=== PATIENT | female | born 1970 | race Caucasian/White ===

== ENCOUNTER → 2017-03-16 07:36 | Outpatient (CLI) | payer OTHER, SELFPAY ==
[2017-03-16 08:04] LABS: Basophil% 0.3 % (0-1); Eosinophils% 3.1 % (0-5); Hematocrit 37.6 % (37-47); Hemoglobin 11.9 g/dl (12.0-15.0); Lymphocyte % 28.1 % (19-41); Mean Corp Hgb Conc 31.6 g/gl (32-36); Mean Corpuscular Hgb 29.5 pg (27.0-32.0); Mean Corpuscular Volume 93.1 fL (81-99); Mean Platelet Vol. 9.3 fl (6.2-12.0); Monocyte% 8.6 % (0-10); Neutrophil % 59.9 % (47-70); POSITIVE COUNT NO; POSITIVE DIFFERENTIAL NO; POSITIVE MORPHOLOGY NO; Platelet Count 236 K/mm3 (150-450); RBC Distribution Width CV 13.2 % (11.6-14.6); RBC Distribution Width SD 44.6 fl (35.1-43.9); Red Blood Count 4.04 M/mm3 (4.2-5.4); White Blood Count 3.6 K/mm3 (4.4-11.0)
[2017-03-16 08:05] LABS: Absolute Lymphocyte Count 1.01 X10^3/ul (0.83-4.51); Absolute Neutrophil Count 2.2 X10^3/uL (2.0-7.7); Basophil# 0.01 X10^3/uL; Eosinophil# 0.11 X10^3/uL; Lymphocyte # 1.01 X10^3/ul (4.0); Monocyte# 0.31 X10^3/uL; Neutrophil # 2.15 X10^3/uL (2.7-7.7)
[2017-03-16 08:20] LABS: Albumin, Serum 3.6 g/dL (3.2-5.0); BUN 23 mg/dL (7-18); BUN/Creat Ratio 14.6 RATIO (10-20); Chloride 103 mmol/L (98-107); Creatinine, Serum 1.57 mg/dL (0.55-1.02); EST Glomerular Filtration Rate 38 mL/min (>60); Est Glom Filt Rate - Afr Amer 46 mL/min (>60); Glucose 87 mg/dL (74-106); Magnesium 1.9 mg/dL (1.6-2.6); Potassium 3.3 mmol/L (3.5-5.1); Sodium Level 142 mmol/L (136-145)
[2017-03-16 08:22] LABS: Microalbumin:Creatinine Ratio 297.7 mg/g CRE (<30 mg/g CRE)
[2017-03-17 11:30] LABS: Vitamin D,25 Hydroxy 23.2 ng/mL (19.95-100.01)
[2017-03-17 11:33] LABS: PTHIN 19.5 pg/mL (18.4-80.1)
== END ==
PROVIDERS: Family Provider Family Medicine; PCP Family Medicine; Visit Provider Internal Medicine Nephrology
DX: N18.3 Chronic kidney disease, stage 3 (moderate) (principal); D63.1 Anemia in chronic kidney disease; N25.81 Secondary hyperparathyroidism of renal origin
CPT/HCPCS: 36415; 80069; 82043; 82306; 82570; 83735; 83970; 85025

== ENCOUNTER → 2017-04-12 16:24 | Outpatient (CLI) | payer OTHER, SELFPAY ==
[2017-04-12 18:16] LABS: Estradiol 77.7 pg/mL
[2017-04-12 18:27] LABS: Progesterone Level 7.68 ng/mL (See Comment)
[2017-04-17 11:23] LABS: HPV Reflexed? NOT INDICATED
== END ==
PROVIDERS: Visit Provider Obstetrics & Gynecology
DX: Z12.4 Encounter for screening for malignant neoplasm of cervix (principal); N92.0 Excessive and frequent menstruation with regular cycle
CPT/HCPCS: 36415; 82670; 84144; 88175; G0145

== ENCOUNTER → 2017-08-30 08:17 | Outpatient (CLI) | payer OTHER, SELFPAY ==
[2017-08-30 08:57] LABS: Hematocrit 38.1 % (37-47); Hemoglobin 12.3 g/dl (12.0-15.0); Mean Corp Hgb Conc 32.3 g/gl (32-36); Mean Corpuscular Hgb 30.5 pg (27.0-32.0); Mean Corpuscular Volume 94.5 fL (81-99); Mean Platelet Vol. 9.5 fl (6.2-12.0); Platelet Count 252 K/mm3 (150-450); RBC Distribution Width CV 13.3 % (11.6-14.6); RBC Distribution Width SD 44.7 fl (35.1-43.9); Red Blood Count 4.03 M/mm3 (4.2-5.4); White Blood Count 5.2 K/mm3 (4.4-11.0)
[2017-08-30 09:02] LABS: Scan Indicated on CBC? Y/N NO
[2017-08-30 09:17] LABS: Microalbumin:Creatinine Ratio 406.6 mg/g CRE (<30 mg/g CRE)
[2017-08-30 09:21] LABS: Albumin, Serum 3.4 g/dL (3.2-5.0); BUN 36 mg/dL (7-18); BUN/Creat Ratio 21.8 RATIO (10-20); Calcium,Total 8.8 mg/dL (8.5-10.1); Chloride 104 mmol/L (98-107); Creatinine, Serum 1.65 mg/dL (0.55-1.02); EST Glomerular Filtration Rate 35 mL/min (>60); Est Glom Filt Rate - Afr Amer 43 mL/min (>60); Glucose 84 mg/dL (74-106); Magnesium 1.9 mg/dL (1.6-2.6); Phosphorus 3.5 mg/dL (2.5-4.9); Potassium 3.5 mmol/L (3.5-5.1); Sodium Level 141 mmol/L (136-145)
[2017-08-30 09:33] LABS: Vitamin D,25 Hydroxy 31.6 ng/mL (29.95-100.01)
[2017-08-30 09:34] LABS: PTHIN 30.3 pg/mL (18.4-80.1)
== END ==
PROVIDERS: Family Provider Family Medicine; PCP Family Medicine; Visit Provider Internal Medicine Nephrology
DX: N18.3 Chronic kidney disease, stage 3 (moderate) (principal); D63.1 Anemia in chronic kidney disease; N25.81 Secondary hyperparathyroidism of renal origin
CPT/HCPCS: 36415; 80069; 82043; 82306; 82570; 83735; 83970; 85027

== ENCOUNTER → 2017-09-28 08:33 | Outpatient (CLI) | payer OTHER, SELFPAY ==
[2017-09-28 10:01] LABS: Estradiol 56.3 pg/mL
[2017-09-29 09:12] LABS: Progesterone Level 7.45 ng/mL (See Comment)
== END ==
PROVIDERS: Family Provider Family Medicine; PCP Family Medicine; Visit Provider Obstetrics & Gynecology
DX: N92.6 Irregular menstruation, unspecified (principal); N92.0 Excessive and frequent menstruation with regular cycle
CPT/HCPCS: 36415; 82670; 84144

== ENCOUNTER → 2018-01-19 14:12 | Outpatient (CLI) | payer OTHER, SELFPAY ==
[2018-01-04 11:14] VITALS: BMI 23.7
[2018-01-19 16:01] LABS: Estradiol 99.8 pg/mL
[2018-01-19 16:06] LABS: Progesterone Level 14.64 ng/mL (See Comment)
--- OUTSIDE RECORDS SUMMARY | 2018-04-25 05:35 | XMS RPT_ITS ---
:1970 Author Organization [place] Support Name Relationship Address Phone CARA FARR Unavailable [address] + [place] [address] [facility] Unavailable [address] + [place] [address] YORDAN, CARA Unavailable [address] + [place] [address] [facility] Unavailable [address] + [place] [address] YORDAN, CARA Unavailable [address] + [place] [address] [facility] Unavailable [address] + [place] [address] YORDAN, CARA Unavailable [address] + [place] [address] [facility] Unavailable [address] + [place] [address] YORDAN, CARA Unavailable [address] + [place] [address] [facility] Unavailable [address] + [place], [place] [id number] [place], [place] [address]MARIA D CARA Unavailable [address] + [place] [address] [facility] Unavailable [address] + [place] [address] YORDANJASWINDER VENTURAE Unavailable [address] + [place] [address] [facility] Unavailable [address] + [place] [address] YORDANJASWINDER VENTURAE Unavailable [address] + [place] [address] [facility] Unavailable [address] + [place] [address] JASWINDER FARRE Unavailable [address] + [place] [address] [facility] Unavailable [address] + [place] [address] YORDAN, CARA Unavailable [address] + [place] [address] [facility] Unavailable [address] + [place], [place] [id number] [place], [place] [address]MARIA D CARA Unavailable [address] + [place] [address] [facility] Unavailable [address] + [place] [id number] CARA Unavailable [address] + [place] [address] [facility] Unavailable [address] + [place] [address] Care Team Providers Name Role Phone Cris Nava Attending Unavailable Cris Nava Attending Unavailable Brown, Srinivasan Primary Care Unavailable Tanphaichitr, Natthavat Attending Unavailable Brown, Srinivasan Primary Care Unavailable ASSESSMENT, HEALTH RISK Attending Unavailable Brown, Srinivasan Primary Care Unavailable DosDara wallace D.C. Attending Unavailable Brown, Srinivasan Referring Unavailable Brown, Srinivasan Primary Care Unavailable Cris Nava Attending Unavailable Brown, Srinivasan Attending Unavailable Brown, Srinivasan Referring Unavailable DosDara wallace D.C. Attending Unavailable Brown, Srinivasan Referring Unavailable Brown, Srinivasan Primary Care Unavailable DosDara wallace D.C. Attending Unavailable Brown, Srinivasan Referring Unavailable Brown, Srinivasan Primary Care Unavailable Tanphaichitr, Natthavat Attending Unavailable Tanphaichitr, Natthavat Referring Unavailable Brown, Srinivasan Primary Care Unavailable Cris Nava Attending Unavailable Brown, Srinivasan Primary Care Unavailable DosDara wallace D.C. Attending Unavailable Brown, Srinivasan Referring Unavailable PROBLEMS PROBLEMS DATE TYPE CONDITION / CODE ATTENDING STATUS SOURCE Unknown N92.6 - Irregular Cris Nava Active [place] [facility] menstruation, Community unspecified / Hospital N92.6(ICD-10) Repository Unknown M99.01 - Segmental and DossiDara lainez Active [place] [facility] somatic dysfunction of D.C. Community cervical region / Hospital M99.01(ICD-10) Repository Unknown M99.02 - Segmental and Dossifatou Dara Active [place] 8 somatic dysfunction of D.C. Community thoracic region / Hospital M99.02(ICD-10) Repository Unknown M99.03 - Segmental and Dosmadison Dara Active [place] 8 somatic dysfunction of D.C. Community lumbar region / Hospital M99.03(ICD-10) Repository Unknown N92.0 - Excessive and ElijahCris Active [place] 8 frequent menstruation [facility] with regular cycle / Hospital N92.0(ICD-10) Repository Unknown D63.1 - Anemia in [facility], Active [place] 8 chronic kidney disease / [facility] D63.1(ICD-10) Hospital Repository Unknown N25.81 - Secondary Tanphaichitr, Active [place] 8 hyperparathyroidism of [facility] renal origin / Hospital N25.81(ICD-10) Repository Unknown N18.3 - Chronic kidney [facility], Active [place] 8 disease, stage 3 [facility] (moderate) / Hospital N18.3(ICD-10) Repository Unknown Z00.00 - Encounter for Srinivasan Lr Active [place] 8 general adult medical Community examination without Hospital abnormal findings / Repository Z00.00(ICD-10) Unknown I10 - Essential Srinivasan Lr Active [place] 8 (primary) hypertension / Community I10(ICD-10) Hospital Repository Unknown Z12.4 - Encounter for Ester Navae Active [place] 8 screening for malignant Community neoplasm of cervix / Hospital Z12.4(ICD-10) Repository PROCEDURES PROCEDURES No Procedure Records FoundRESULTS RESULTS SCREENING MAMM (CAD), Observed: 02/19/2018 Status: F Source: [place] 7:02 AM [facility] REPOSITORY [facility] Imaging Services [address] [place] [address] SCREENING MAMM (CAD), BILAT MR#: [id number] Acct: [id number] Name: MARILEE FARR Rep #: [id number] : 1970 F 47 From: Bossman Ryan MD PCP: Srinivasan Lr DO Status: REG CLI Study: SCREENING MAMM (CAD), BILAT Date of Exam: 02/19/18 Exam# [id number] Ordering Dr: Cris Nava MD MAMMOGRAPHY - BILATERAL SCREENING REASON FOR EXAM: Female, 47 years old. Routine annual screening examination. PERTINENT HISTORY: Non-contributory. TECHNIQUE: Digital bilateral breast jason (3D mammographic acquisition) in the CC and MLO projections. 2-D mediolateral oblique (MLO) and craniocaudad (CC) views of both breasts were obtained. CAD: Full Field Digital Mammography with Computer Added Detection was performed. COMPARISON: Comparison is made with prior study dated October 03, 2013. FINDINGS: Breast Composition: The breasts are heterogeneously dense, which may obscure small masses. There are no dominant masses or suspicious calcifications. No other significant abnormalities are identified. There has been no significant change since the prior study. BI/SCREENING MAMM (CAD), BILAT IMPRESSION: Stable bilateral screening mammogram. Yearly follow-up mammogram recommended. (A) ASSESSMENT CATEGORY: BIRADS Category 1: Negative. A letter regarding these results will be sent to the patient by the facility within 30 days. Approximately 10% of breast cancers are not detected by mammography. A normal mammogram should not delay biopsy of a clinically suspicious abnormality. [id number] Electronically Signed: Bossman Ryan MD at 9:12 EST Tel [phone], Service support , CC: Cris Nava MD; Srinivasan Lr DO Occupancy Specialist: Signed ESTRADIOL Collected: 01/19/2018 Status: F Source: [place] 2:16 PM [facility] REPOSITORY TYPE CODE TESTS RESULT OUT OF RANGE REFERENCE UNITS LAB L3300.1750 pg/mL Normal ESTRADIOL 99.8 Result Comment: NORMAL REFERENCE RANGES FEMALE FOLLICULAR 21.4 - 164.8 pg/mL MID-CYCLE PEAK 49.9 - 367.2 pg/mL LUTEAL 40.2 - 259.0 pg/mL POST-MENOPAUSAL ON MHT <11.0 - 462.1 pg/mL NOT ON MHT <11.0 - 58.3 pg/mL MALE <11.0 - 52.5 pg/mL NOTE: [facility] HAS CONFIRMED THE DRUG FULVETRANT (FASLODEX) MAY CAUSE FALSELY ELEVATED ESTRADIOL RESULTS WHEN USING THIS TEST METHOD. IF PATIENT IS TAKING FULVESTRANT AN ALTERNATIVE METHOD SHOULD BE USED TO DETERMINE ESTRADIOL CONCENTRATION. Performed By: #### L3300.1750 #### [facility] [address] [place], [place], [address] PROGESTERONE LEVEL Collected: 01/19/2018 Status: F Source: [place] 2:16 PM [facility] REPOSITORY TYPE CODE TESTS RESULT OUT OF REFERENCE UNITS RANGE LAB L509.4001 See Comment ng/mL Progesterone Normal 14.64 Result Comment: Progesterone Reference Table: UNITS Female: Follicular 0.15 - 1.40 ng/mL Luteal 3.34 - 25.56 ng/mL Mid-luteal 4.44 - 28.03 ng/mL Postmenopausal 0.0 - 0.73 ng/mL : 1st Trimester 11.22 - 90.00 ng/mL 2nd Trimester 25.55 - 89.40 ng/mL 3rd Trimester 48.40 -422.50 ng/mL Performed By: #### L509.4001 #### [facility] [address] [place], [address] CHIROPRACTIC REPORT Observed: 01/04/2018 Status: F Source: [place] 4:07 PM [facility] REPOSITORY [facility] [address] [place] [address] OFFICE VISIT Date of Service: 01/04/18 MR#: [id number] Acct: [id number] Name: MARILEE FARR Rep #: [id number] : 1970 Provider: Dara Hewitt D.C. Age/Sex: 47/F Location: [facility] Status: Signed Intake Vital Signs01/04/18 Height 5 ft 6 in 01/04/18 Weight: 147 lb 01/04/18 Body Mass Index (BMI) 23.7 Intake Visit Reasons: neck pain Is patient in pain?: Yes Allergies aspirin Adverse Reaction (Mild, Verified 04/26/17 15:32) Nausea codeine Adverse Reaction (Mild, Verified 04/26/17 15:32) Nausea Medications diphenhydramine 25 mg capsule 25 mg PO QHS PRN 04/26/17 [History Confirmed 04/26/17] fish oil 400 mg-flaxseed 400 mg-prim,blk railroad brake repairer,borag oils 200 mg capsule cap PO 04/26/17 [History Confirmed 04/26/17] losartan 100 mg tablet 100 mg PO QDAY 04/26/17 [History Confirmed 04/26/17] multivitamin capsule 1 cap PO QAM 04/26/17 [History Confirmed 04/26/17] hydrochlorothiazide 25 mg tablet 25 mg PO QAM #90 tab 10/20/17 [Rx] PFSH Medical History Seasonal allergies (Acute) Hypertension (Chronic) Chronic kidney disease (Chronic) Surgical History nodules removed from vocal cords (Acute) Family History Mother auto immune disease Father Asthma Hypertension Grandmother Myocardial infarction Hyperlipemia Social History Smoking Status: Former smoker how long ago did patient quit smokin alcohol intake: current alcohol intake frequency: a few times a month Alcohol type: beer substance use type: does not use what type of physical activity do you participate in: weight training, aerobics frequency: 3-4 times per week HPI neck pain : Chief Complaint: Neck pain Visit Number: 5 Details: MARILEE FARR is a 47 year old F who presents with neck pain. She states that over the past two weeks her pain has increased, leaving her with a tight and sore ache banding across the neck and upper back. Rotation of the neck, looking down, and lifting cause increased pain, at times the pain can become a sharp ache that come and goes. Her low back get tight and achy across the belt line. No new injury to the area. Marilee denies any numbness, tingling, or radiculopathy. Onset: 12/21/17 Location: neck/LB Duration: intermittent/occasional Aggravating or associated factors: rotation, bending and lifting Relieving factors: chiro Pain Quality: aching, dull, cramping, sharp Exam Musc General: Yes normal posture, normal gait and joint tenderness (C2,C5, C6, T2, T5, T8, L5) Cervical Spine: cervical spasm, normal cervical lordosis, cervical ROM normal, pain with cervical ROM, cervical muscular tenderness bilateral lower: paracervical muscle and trapezius Thoracic/Lumbar Spine: thoracic and lumbar spine normal to inspection, thoraco-lumbar spasm bilaterally in the upper thoracic, in the lower lumbar and in the mid lumbar, thoraco-lumbar ROM normal, pain with thoraco-lumbar ROM, paraspinal tenderness bilaterally in the lower lumbar and in the mid lumbar Office Procedures Chiropractic Treatments Procedures Manipulation: 3-4 regions (C2,C6, T2, T5, T8, L5) Electrical Stimulation: 15 mins (cervical ) Traction, Mechanical: Yes Details: Lumbar traction 15 min Assessment AND Plan 1. Segmental and somatic dysfunction of cervical region M99.01 Orders Orders: 2. Segmental and somatic dysfunction of thoracic region M99.02 Orders Orders: 3. Segmental and somatic dysfunction of lumbar region M99.03 Orders Orders: Plan Detail Goals Decrease pain and spasm Barriers Hx of RA Follow Up PRN Coding Level of Care Code No Charge Diagnoses Segmental and somatic dysfunction of cervical region M99.01 Segmental and somatic dysfunction of thoracic region M99.02 Segmental and somatic dysfunction of lumbar region M99.03 Additional Codes Procedures - Manipulation: 3-4 regions (14607) Procedures - Electrical Stimulation: 15 mins (56788) Procedures - Traction, Mechanical: Yes (03499) 01/04/18 1607 <Electronically signed by Dara Hewitt D.C.> Date Dara Hewitt D.C. Cosigner Signature: Date (if applicable) CC: ESTRADIOL Collected: 09/28/2017 Status: F Source: [place] 8:47 AM [facility] REPOSITORY TYPE CODE TESTS RESULT OUT OF RANGE REFERENCE UNITS LAB L3300.1750 pg/mL Normal ESTRADIOL 56.3 Result Comment: NORMAL REFERENCE RANGES FEMALE FOLLICULAR 21.4 - 164.8 pg/mL MID-CYCLE PEAK 49.9 - 367.2 pg/mL LUTEAL 40.2 - 259.0 pg/mL POST-MENOPAUSAL ON MHT <11.0 - 462.1 pg/mL NOT ON MHT <11.0 - 58.3 pg/mL MALE <11.0 - 52.5 pg/mL NOTE: [facility] HAS CONFIRMED THE DRUG FULVETRANT (FASLODEX) MAY CAUSE FALSELY ELEVATED ESTRADIOL RESULTS WHEN USING THIS TEST METHOD. IF PATIENT IS TAKING FULVESTRANT AN ALTERNATIVE METHOD SHOULD BE USED TO DETERMINE ESTRADIOL CONCENTRATION. Performed By: #### L3300.1750 #### [facility] [address] [facility] [place], [place], [id number] PROGESTERONE LEVEL Collected: 09/28/2017 Status: F Source: [place] 8:47 AM [facility] REPOSITORY TYPE CODE TESTS RESULT OUT OF REFERENCE UNITS RANGE LAB L509.4001 See Comment ng/mL Progesterone Normal 7.45 Result Comment: Progesterone Reference Table: UNITS Female: Follicular 0.15 - 1.40 ng/mL Luteal 3.34 - 25.56 ng/mL Mid-luteal 4.44 - 28.03 ng/mL Postmenopausal 0.0 - 0.73 ng/mL : 1st Trimester 11.22 - 90.00 ng/mL 2nd Trimester 25.55 - 89.40 ng/mL 3rd Trimester 48.40 -422.50 ng/mL Performed By: #### L509.4001 #### [facility] [address] [place], [address] CBC-COMPLETE BLOOD CNT Collected: 08/30/2017 Status: F Source: [place] NO DIFF 8:26 AM [facility] REPOSITORY TYPE CODE TESTS RESULT OUT OF RANGE REFERENCE UNITS LAB L100.1000 4.4-11.0 K/mm3 Normal WBC 5.2 LAB L100.1200 4.2-5.4 M/mm3 Low RBC 4.03 LAB L100.1300 12.0-15.0 g/dl Normal HGB 12.3 LAB L100.1400 37-47 % Normal HCT 38.1 LAB L100.1500 81-99 fL Normal MCV 94.5 LAB L100.1600 27.0-32.0 pg Normal MCH 30.5 LAB L100.1700 32-36 g/gl Normal MCHC 32.3 LAB L100.1810 11.6-14.6 % Normal RDW CV 13.3 LAB L100.1820 35.1-43.9 fl High RDW SD 44.7 LAB L100.1900 150-450 K/mm3 Normal PLT 252 LAB L100.2000 6.2-12.0 fl Normal MPV 9.5 Performed By: #### L100.0500 #### [facility] [address] [facility] [place], [place], [address] MICROALB:CREAT Collected: 08/30/2017 Status: F Source: [place] RATIO,RANDOM UR 8:26 AM [facility] REPOSITORY TYPE CODE TESTS RESULT OUT OF RANGE REFERENCE UNITS LAB L501.1200 NO RANGE EST. mg/dL Normal UR CREAT 48.20 LAB L502.0500 NO RANGE EST. mg/L Normal 196.0 MICROALBUMIN ,UR LAB L502.0600 <30 mg/g CRE mg/g CRE High 406.6 MALB:CREAT Performed By: #### L502.0250 #### [facility] [address] [facility] [place], [address] RENAL PROFILE Collected: 08/30/2017 Status: F Source: [place] 8:26 AM [facility] REPOSITORY TYPE CODE TESTS RESULT OUT OF RANGE REFERENCE UNITS LAB L501.0100 74-106 mg/dL Normal GLU 84 Result Comment: Please note revised GLUCOSE reference range effective 2017. LAB L501.1000 7-18 mg/dL High BUN 36 LAB L501.1100 0.55-1.02 mg/dL High CREAT,SERUM 1.65 Result Comment: The validity of the calculated GFR AND GFRAA in patients over 70 years has not been determined. Clinical correlation is essential. LAB L501.1110 >60 mL/min Low EST GFR 35 Result Comment: Non- GFR Calc LAB L501.1115 >60 mL/min Low EST GFR - AA 43 Result Comment: GFR Calc LAB L501.1300 10-20 RATIO High BUN/CRE 21.8 LAB L501.1800 3.2-5.0 g/dL Normal ALB 3.4 LAB L501.2200 8.5-10.1 mg/dL CA Normal 8.8 LAB L501.2300 2.5-4.9 mg/dL Normal PHOS 3.5 LAB L501.5300 136-145 mmol/L NA Normal 141 LAB L501.5600 3.5-5.1 mmol/L K Normal 3.5 LAB L501.5900 98-107 mmol/L CL Normal 104 LAB L501.6100 21.0-32.0 mmol/L Normal CO2 29.0 Performed By: #### L500.3600, L501.5200 #### [facility] [address] [facility] [place], [place], [address] MAGNESIUM Collected: 08/30/2017 Status: F Source: [place] 8:26 AM [facility] REPOSITORY TYPE CODE TESTS RESULT OUT OF RANGE REFERENCE UNITS LAB L501.5200 1.6-2.6 mg/dL Normal MG 1.9 Performed By: #### L500.3600, L501.5200 #### [facility] [address] [place], [address] VITAMIN D,25 HYDROXY Collected: 08/30/2017 Status: F Source: [place] 8:26 AM [facility] REPOSITORY TYPE CODE TESTS RESULT OUT OF RANGE REFERENCE UNITS LAB L506.1000 29.95-100.01 ng/mL Normal Vitamin D 31.6 25-OH Result Comment: Vitamin D 25(OH) Status Range Deficiency <20 ng/mL (50nmol/L) Insuffciency 20 - 30 ng/mL (50 - 75 nmol/L) Sufficiency 30 - 100 ng/mL (75 - 250 nmol/L) Toxicity >100 ng/mL (>250 nmol/L) Performed By: #### L506.1000 #### [facility] [address] [place], [address] PTHIN Collected: 08/30/2017 Status: F Source: [place] 8:26 AM [facility] REPOSITORY TYPE CODE TESTS RESULT OUT OF RANGE REFERENCE UNITS LAB L509.1000 18.4-80.1 pg/mL Normal PTHIN 30.3 Performed By: #### L509.1000 #### [facility] [address] [place], [address] CHIROPRACTIC REPORT Observed: 07/25/2017 Status: F Source: [place] 10:11 AM [facility] REPOSITORY [facility] [address] [place] [address] [place] [address] OFFICE VISIT Date of Service: 07/24/17 MR#: [id number] Acct: [id number] Name: MARILEE FARR Rep #: [id number] : 1970 Provider: Dara Hewitt D.C. Age/Sex: 47/F Location: [facility] Status: Signed Intake Vital Signs07/24/17 Height 5 ft 6 in 07/24/17 Weight: 147 lb 07/24/17 Body Mass Index (BMI) 23.7 Intake Visit Reasons: neck pain Is patient in pain?: Yes Allergies aspirin Adverse Reaction (Mild, Verified 04/26/17 15:32) Nausea codeine Adverse Reaction (Mild, Verified 04/26/17 15:32) Nausea Medications diphenhydramine 25 mg capsule 25 mg PO QHS PRN 04/26/17 [History Confirmed 04/26/17] fish oil 400 mg-flaxseed 400 mg-prim,blk railroad brake repairer,borag oils 200 mg capsule cap PO 04/26/17 [History Confirmed 04/26/17] hydrochlorothiazide 25 mg tablet 25 mg PO QAM 04/26/17 [History Confirmed 04/26/17] losartan 100 mg tablet 100 mg PO QDAY 04/26/17 [History Confirmed 04/26/17] multivitamin capsule 1 cap PO QAM 04/26/17 [History Confirmed 04/26/17] PFSH Medical History Seasonal allergies (Acute) Hypertension (Chronic) Chronic kidney disease (Chronic) Surgical History nodules removed from vocal cords (Acute) Family History Mother auto immune disease Father Asthma Hypertension Grandmother Myocardial infarction Hyperlipemia Social History Smoking Status: Former smoker how long ago did patient quit smokin alcohol intake: current alcohol intake frequency: a few times a month Alcohol type: beer substance use type: does not use what type of physical activity do you participate in: weight training, aerobics frequency: 3-4 times per week HPI neck pain : Chief Complaint: neck pain Visit Number: 4 Details: MARILEE FARR is a 47 year old F who presents with neck, mid back, and L hip pain. She states that within the past week she has become tight and sore with an occasional dull ache, although over the past 4 days has noticed a tender area around the L hip. Today Marilee rates her pain a 3/10 and describes it as a tight ache, that increases in the hip when walking or running. Marilee denies any numbness or tingling. Onset: 07/17/17 Location: neck, mid back and L hip Duration: intermittent Aggravating or associated factors: walking, running and rotation of the head Relieving factors: chiro Pain Quality: aching, dull, cramping Exam Musc General: Yes normal posture, normal gait and joint tenderness (C2,C5, C6, T2, T5, T8, L5) Cervical Spine: cervical spasm right greater than left lower: trapezius and paracervical muscles (R scalene), normal cervical lordosis, cervical ROM normal, pain with cervical ROM with lateral flexion to right and with lateral flexion to left Thoracic/Lumbar Spine: thoracic and lumbar spine normal to inspection, thoraco-lumbar spasm bilaterally in the lower lumbar, thoraco-lumbar ROM normal, pain with thoraco-lumbar ROM with forward flexion Office Procedures Chiropractic Treatments Procedures Manipulation: 3-4 regions (C2,C5, T2, T5, L5) Electrical Stimulation: 15 mins Location: cerviical Traction, Mechanical: Yes Details: Lumbar traction 15 min Assessment AND Plan 1. Segmental and somatic dysfunction of cervical region M99.01 Orders Orders: 2. Segmental and somatic dysfunction of thoracic region M99.02 Orders Orders: 3. Segmental and somatic dysfunction of lumbar region M99.03 Orders Orders: Plan Detail Goals Decrease pain and spasm Barriers Hx of RA Follow Up PRN Coding Level of Care Code No Charge Diagnoses Segmental and somatic dysfunction of cervical region M99.01 Segmental and somatic dysfunction of thoracic region M99.02 Segmental and somatic dysfunction of lumbar region M99.03 Additional Codes Procedures - Manipulation: 3-4 regions (51039) Procedures - Electrical Stimulation: 15 mins (55625) Procedures - Traction, Mechanical: Yes (43848) 07/25/17 1011 <Electronically signed by Dara Hewitt D.C.> Date Dara Hewitt D.C. Cosigner Signature: Date (if applicable) CC: CHIROPRACTIC REPORT Observed: 05/24/2017 Status: F Source: [place] 11:38 AM [facility] [address] [place] [address] OFFICE VISIT Date of Service: 05/23/17 MR#: [id number] Acct: [id number] Name: MARILEE FARR Rep #: [id number] : 1970 Provider: Dara Hewitt D.C. Age/Sex: 46/F Location: [facility] Status: Signed Intake Vital Signs05/23/17 Height 5 ft 6 in 05/23/17 Weight: 147 lb 05/23/17 Body Mass Index (BMI) 23.7 05/23/17 Height 5 ft 6 in 05/23/17 Weight: 147 lb 05/23/17 Body Mass Index (BMI) 23.7 Intake Visit Reasons: neck pain Is patient in pain?: Yes Allergies aspirin Adverse Reaction (Mild, Verified 04/26/17 15:32) Nausea codeine Adverse Reaction (Mild, Verified 04/26/17 15:32) Nausea Medications diphenhydramine 25 mg capsule 25 mg PO QHS PRN 04/26/17 [History Confirmed 04/26/17] fish oil 400 mg-flaxseed 400 mg-prim,blk railroad brake repairer,borag oils 200 mg capsule cap PO 04/26/17 [History Confirmed 04/26/17] hydrochlorothiazide 25 mg tablet 25 mg PO QAM 04/26/17 [History Confirmed 04/26/17] losartan 100 mg tablet 100 mg PO QDAY 04/26/17 [History Confirmed 04/26/17] multivitamin capsule 1 cap PO QAM 04/26/17 [History Confirmed 04/26/17] PFSH Medical History Seasonal allergies (Acute) Hypertension (Chronic) Chronic kidney disease (Chronic) Surgical History nodules removed from vocal cords (Acute) Family History Mother auto immune disease Father Asthma Hypertension Grandmother Myocardial infarction Hyperlipemia Social History Smoking Status: Former smoker how long ago did patient quit smokin alcohol intake: current alcohol intake frequency: a few times a month Alcohol type: beer substance use type: does not use what type of physical activity do you participate in: weight training, aerobics frequency: 3-4 times per week HPI neck pain : Chief Complaint: neck pain Visit Number: 3 Details: MARILEE FARR is a 46 year old F who presents with neck and shoulder pain. She states that over the past week she has noticed tightness in the neck and shoulders with soreness and slight muscle spasms. Today Marilee rates her pain a 4/10 and describes it as a tight and sore ache that can be constant, lifting, exercising and talking on the phone all increase her pain. She feels like she needs a once over and gets occasional low back tightness. She denies any headaches, numbness, or tingling. Onset: 05/15/17 Location: neck and shoulders Duration: constant Aggravating or associated factors: lifting, exercising and talking on the phone Pain Quality: aching, dull, cramping, sharp Exam Musc General: Yes normal posture, normal gait and joint tenderness (C2,C5, C6, T2, T5, T8, L5) Cervical Spine: cervical spasm right greater than left lower: trapezius and paracervical muscles (R scalene), normal cervical lordosis, cervical ROM normal, pain with cervical ROM with lateral flexion to right and with lateral flexion to left Thoracic/Lumbar Spine: thoracic and lumbar spine normal to inspection, thoraco-lumbar spasm bilaterally in the lower lumbar, thoraco-lumbar ROM normal, pain with thoraco-lumbar ROM with forward flexion Office Procedures Chiropractic Treatments Procedures Manipulation: 3-4 regions (C2, C5, T2, T5, T8, L5) Electrical Stimulation: 15 mins Location: cervical Assessment AND Plan 1. Segmental and somatic dysfunction of cervical region M99.01 Orders Orders: 2. Segmental and somatic dysfunction of lumbar region M99.03 Orders Orders: 3. Segmental and somatic dysfunction of thoracic region M99.02 Orders Orders: Plan Detail Goals Decrease pain and spasm Barriers Hx of RA Follow Up PRN Coding Level of Care Code No Charge Diagnoses Segmental and somatic dysfunction of cervical region M99.01 Segmental and somatic dysfunction of lumbar region M99.03 Segmental and somatic dysfunction of thoracic region M99.02 Additional Codes Procedures - Electrical Stimulation: 15 mins (37998) Procedures - Manipulation: 3-4 regions (66684) 05/24/17 1138 <Electronically signed by Dara Hewitt D.C.> Date Dara Hewitt D.C. Cosigner Signature: Date (if applicable) CC: INTERNAL MEDICINE Observed: 04/26/2017 Status: F Source: [facility] OFFICE VISIT 4:09 PM [facility] [address] OFFICE VISIT Date of Service: 04/26/17 MR#: [id number] Acct: [id number] Name: MARILEE FARR Rep #: [id number] : 1970 Provider: Srinivasan Lr DO Age/Sex: 46/F Location: [facility] Status: Signed Intake Vital Signs04/26/17 Height 5 ft 6 in Intake Visit Reasons: WELLNESS VISIT Chief Complaint: wellness visit Assisted Living Assistant Required: No Is patient in pain?: No Allergies aspirin Adverse Reaction (Mild, Verified 04/26/17 15:32) Nausea codeine Adverse Reaction (Mild, Verified 04/26/17 15:32) Nausea Medications diphenhydramine 25 mg capsule 25 mg PO QHS PRN 04/26/17 [History Confirmed 04/26/17] fish oil 400 mg-flaxseed 400 mg-prim,blk railroad brake repairer,borag oils 200 mg capsule cap PO 04/26/17 [History Confirmed 04/26/17] hydrochlorothiazide 25 mg tablet 25 mg PO QAM 04/26/17 [History Confirmed 04/26/17] losartan 100 mg tablet 100 mg PO QDAY 04/26/17 [History Confirmed 04/26/17] multivitamin capsule 1 cap PO QAM 04/26/17 [History Confirmed 04/26/17] Is last menstrual period known: Yes PFSH Medical History Seasonal allergies (Acute) Hypertension (Chronic) Chronic kidney disease (Chronic) Surgical History nodules removed from vocal cords (Acute) Family History Mother auto immune disease Father Asthma Hypertension Grandmother Myocardial infarction Hyperlipemia Social History Smoking Status: Former smoker how long ago did patient quit smokin alcohol intake: current alcohol intake frequency: a few times a month Alcohol type: beer substance use type: does not use what type of physical activity do you participate in: weight training, aerobics frequency: 3-4 times per week HPI HPI Chief Complaint: wellness visit Details: MARILEE FARR, is a 46 F who presents to the office today for a wellness check up. ROS Const Constitutional: No weight change, body ache, chills, fatigue, sleep problems, fever(s), change in appetite, snoring, weakness, frequent falls, headache(s) or excessive sweating Eyes Eyes: No change in vision, eye pain, light sensitivity or blurry vision ENT ENT: No headache(s), abnormal hearing, ear pain, tinnitus, nasal congestion, sore throat or neck pain Resp Respiratory: No snoring, cough, shortness of breath or wheezing Cardio Cardiology: No excessive sweating, chest pain at rest, chest pain with exertion, shortness of breath, dyspnea on exertion, palpitations, orthopnea or lightheadedness Gastro GI: No abdominal pain, change in bowel habits, constipation, diarrhea, vomiting, nausea/dyspepsia or cramping Musc Musculoskeletal: No neck pain, abnormal walking, joint pain, back pain, limited range of motion, numbness, tingling or muscle weakness Skin Skin: No redness, dry skin, itching, lesions, wounds or rash Neuro Neurology: No weakness, frequent falls, headache(s), abnormal hearing, abnormal walking, numbness, tingling, abnormal speech, dizziness or memory loss Psych Psychiatric: No change in appetite, No memory loss, No anxiety, No depression, No Thoughts of harming yourself/Others Endo Endocrine: No fatigue, excessive sweating, cold intolerance, increased thirst/drinking, heat intolerance, flushing or increased hunger Aller/Imm Allergy/Immunologic: No wheezing, itchy eyes, hives or seasonal allergy symptoms Nikunj/Lymp Hematologic/Lymphatic: No easy bleeding, easy bruising or enlarged lymph nodes Exam Const General: cooperative, healthy appearing, well developed [facility] Head: normal to inspection Ears: hearing grossly normal bilaterally, TM's normal bilaterally, external ears normal Nose: external nose normal, nares normal Face and sinus: normal facial exam, sinuses nontender Mouth: oral mucosae normal, lip normal, tongue normal, oropharynx normal Eyes General: appearance normal, both eyes and all related structures Neck Neck: normal visual inspection, full ROM, no lymphadenopathy Neck mass: No Thyroid: thyroid normal Resp Effort AND Inspection: normal respiratory effort Auscultation: Bilateral: Clear to Auscultation Cardio Palpation: normal PMI Rate: regular rate Rhythm: regular rhythm Heart Sounds: S1 normal, S2 normal GI Inspection: normal to inspection Auscultation: normal bowel sounds Percussion: normal to percussion Palpation: soft, no hepatosplenomegaly Musc Musculoskeletal: No joint tenderness, joint redness, joint warmth, decreased ROM, spinal deformity, scoliosis to L, scoliosis to R, lordosis or muscle weakness Skin General: no rashes or lesions noted Neuro General: oriented x3, deep tendon reflexes 2+ bilaterally Cranial Nerves: CN's II-XI intact bilaterally Extrem General: normal to inspection, full ROM Psych Appearance: well kempt Mental Status: mental status grossly normal Affect: normal affect Assessment AND Plan Problems 1. Encounter for wellness examination in adult Z00.00 2. Hypertension I10 3. Chronic renal disease, stage 3, moderately decreased glomerular filtration rate between 30-59 mL/min/1.73 square meter N18.3 Plan Detail Goals Decrease pain and spasm Barriers Hx of RA Follow Up 1 Year Coding Level of Care Code Off vis,est,prev 40-64yrs Diagnoses Encounter for wellness examination in adult Z00.00 Hypertension I10 Chronic renal disease, stage 3, moderately decreased glomerular filtration rate between 30-59 mL/min/1.73 square meter N18.3 04/26/17 1609 <Electronically signed by Srinivasan Lr DO> Date Srinivasan Lr DO Cosigner Signature: Date (if applicable) CC: ESTRADIOL Collected: 04/12/2017 Status: F Source: [facility] 4:27 PM [facility] REPOSITORY TYPE CODE TESTS RESULT OUT OF RANGE REFERENCE UNITS LAB L3300.1750 pg/mL Normal ESTRADIOL 77.7 Result Comment: NORMAL REFERENCE RANGES FEMALE FOLLICULAR 21.4 - 164.8 pg/mL MID-CYCLE PEAK 49.9 - 367.2 pg/mL LUTEAL 40.2 - 259.0 pg/mL POST-MENOPAUSAL ON MHT <11.0 - 462.1 pg/mL NOT ON MHT <11.0 - 58.3 pg/mL MALE <11.0 - 52.5 pg/mL NOTE: [facility] HAS CONFIRMED THE DRUG FULVETRANT (FASLODEX) MAY CAUSE FALSELY ELEVATED ESTRADIOL RESULTS WHEN USING THIS TEST METHOD. IF PATIENT IS TAKING FULVESTRANT AN ALTERNATIVE METHOD SHOULD BE USED TO DETERMINE ESTRADIOL CONCENTRATION. Performed By: #### L3300.1750 #### [facility] [address] [place], [address] PROGESTERONE LEVEL Collected: 04/12/2017 Status: F Source: [facility] 4:27 PM [facility] REPOSITORY TYPE CODE TESTS RESULT OUT OF REFERENCE UNITS RANGE LAB L509.4001 See Comment ng/mL Progesterone Normal 7.68 Result Comment: Progesterone Reference Table: UNITS Female: Follicular 0.15 - 1.40 ng/mL Luteal 3.34 - 25.56 ng/mL Mid-luteal 4.44 - 28.03 ng/mL Postmenopausal 0.0 - 0.73 ng/mL : 1st Trimester 11.22 - 90.00 ng/mL 2nd Trimester 25.55 - 89.40 ng/mL 3rd Trimester 48.40 -422.50 ng/mL Performed By: #### L509.4001 #### [facility] [address] [place], [address] PAP I-G W/RFX HRHPV Collected: 04/12/2017 Status: F Source: [facility] 3:30 PM [facility] REPOSITORY Order Comment: CYTOLOGY INFORMATION: - CLINICAL INFORMATION: - DATE LMP/MENOPAUSE: 03/25/17 LMP - COLLECTION VIAL: Thin Prep Vial - MICROBIOLOGY PROFESSOR SOURCE: CERVICAL/ENDOCERVICAL - COLLECTION TECHNIQUE: BRUSH/SPATULA Specimen Comment: [id number] Specimen Comment: No. of containers..01 ThinPrep Vial TYPE CODE TESTS RESULT OUT OF RANGE REFERENCE UNITS LAB L7400.0800 . Normal DIAGN Comment Result Comment: NEGATIVE FOR INTRAEPITHELIAL LESION AND MALIGNANCY. LAB L7400.0900 . Normal ADEQ Comment Result Comment: Satisfactory for evaluation. Endocervical and/or squamous metaplastic cells (endocervical component) are present. LAB L7400.1400 . Normal PERFORM Comment Result Comment: Bettina Lamb, Surveyor Helper (ASCP) LAB L7400.2575 . Normal TEST METHOD Comment Result Comment: This liquid based ThinPrep(R) pap test was screened with the use of an image guided system. LAB L7400.2600 . Normal . COMM LAB L7400.2700 . Normal PAPSMR Comment Result Comment: The Pap smear is a screening test designed to aid in the detection of premalignant and malignant conditions of the uterine cervix. It is not a diagnostic procedure and should not be used as the sole means of detecting cervical cancer. Both false-positive and false-negative reports do occur. LAB L7400.2800 . Normal HPV RFLX Comment Result Comment: The HPV DNA reflex criteria were not met with this specimen result therefore, no HPV testing was performed. Performed at: - [facility] [id number] Curb Attendant: Mary Kay Marquez MD, Phone: [phone] Performed By: #### L7400.0350 #### [facility] (refer to report for specific site) refer to report for address and phone number CHIROPRACTIC REPORT Observed: 04/03/2017 Status: F Source: [facility] 9:33 AM [facility] Chiropractic [address] [place] [address] OFFICE VISIT Date of Service: 03/30/17 MR#: [id number] Acct: [id number] Name: MARILEE FARR Rep #: [id number] : 1970 Provider: Dara Hewitt D.C. Age/Sex: 46/F Location: [facility] Status: Signed Intake Vital Signs03/30/17 Height 5 ft 6 in 03/30/17 Weight: 115 lb 03/30/17 Body Mass Index (BMI) 18.6 Intake Visit Reasons: neck pain Is patient in pain?: Yes Allergies No Known Allergies Allergy (Verified 04/23/15 11:25) PFSH Social History Smoking Status: Former smoker HPI neck pain : Chief Complaint: neck pain Visit Number: 2 Details: MARILEE FARR is a 46 year old F who presents with neck and shoulder pain. Marilee states that over the last three days her pain has increased, rating it a 4/10. Marilee describes the pain as a tight ache that comes and goes, leaning forward, looking down and raising the arms increases her pain. Her low back pain is mild and bilateral, intermittent in nature. Marilee denies any numbness or tingling. Location: neck pain Duration: intermittant Aggravating or associated factors: leaning forward, looking down, raising arms Relieving factors: laying flat, stretching Pain Quality: aching, dull Exam Musc General: Yes normal posture, normal gait and joint tenderness (C5, C6, T2, T5, T8, L5) Cervical Spine: cervical spasm right greater than left lower: trapezius and paracervical muscles (R scalene), normal cervical lordosis, cervical ROM normal, pain with cervical ROM with lateral flexion to right and with lateral flexion to left Thoracic/Lumbar Spine: thoracic and lumbar spine normal to inspection, thoraco-lumbar spasm bilaterally in the lower lumbar, thoraco-lumbar ROM normal, pain with thoraco-lumbar ROM with forward flexion Office Procedures Chiropractic Treatments Procedures Manipulation: 3-4 regions (C2, C5, T2, T8, L5) Electrical Stimulation: 15 mins Location: cervical Assessment AND Plan 1. Segmental and somatic dysfunction of cervical region M99.01 Orders Orders: 2. Segmental and somatic dysfunction of thoracic region M99.02 Orders Orders: 3. Segmental and somatic dysfunction of lumbar region M99.03 Orders Orders: Plan Detail Goals Decrease pain and spasm Barriers Hx of RA Follow Up PRN Coding Level of Care Code No Charge Diagnoses Segmental and somatic dysfunction of cervical region M99.01 Segmental and somatic dysfunction of thoracic region M99.02 Segmental and somatic dysfunction of lumbar region M99.03 Additional Codes Procedures - Electrical Stimulation: 15 mins (14130) Procedures - Manipulation: 3-4 regions (76621) 04/03/17 0933 <Electronically signed by Dara Hewitt D.C.> Date Dara Hewitt D.C. Cosigner Signature: Date (if applicable) CC: CBC, EMPLOYEE Collected: 03/16/2017 Status: F Source: [facility] 7:41 AM [facility] REPOSITORY TYPE CODE TESTS RESULT OUT OF RANGE REFERENCE UNITS LAB L100.1000 4.4-11.0 K/mm3 Low WBC 3.6 LAB L100.1200 4.2-5.4 M/mm3 Low RBC 4.04 LAB L100.1300 12.0-15.0 g/dl Low HGB 11.9 LAB L100.1400 37-47 % Normal HCT 37.6 LAB L100.1500 81-99 fL Normal MCV 93.1 LAB L100.1600 27.0-32.0 pg Normal MCH 29.5 LAB L100.1700 32-36 g/gl Low MCHC 31.6 LAB L100.1810 11.6-14.6 % Normal RDW CV 13.2 LAB L100.1820 35.1-43.9 fl High RDW SD 44.6 LAB L100.1900 150-450 K/mm3 Normal PLT 236 LAB L100.2000 6.2-12.0 fl Normal MPV 9.3 LAB L100.2110 47-70 % Normal NEUT% 59.9 LAB L100.2210 19-41 % Normal LY% 28.1 LAB L100.2310 0-10 % Normal MONO% 8.6 LAB L100.2410 0-5 % Normal EO% 3.1 LAB L100.2510 0-1 % Normal BASO% 0.3 LAB L100.2620 2.0-7.7 X10 3/uL Normal Absolute Neut 2.2 LAB L100.2720 0.83-4.51 X10 3/ul Normal Absolute Lymph 1.01 Performed By: #### L100.0200 #### [facility] [address] [place], [address] URINALYSIS, EMPLOYEE Collected: 03/16/2017 Status: F Source: [facility] 7:41 AM [facility] REPOSITORY TYPE CODE TESTS RESULT OUT OF RANGE REFERENCE UNITS LAB L400.3000 Yellow COLOR Normal Yellow LAB L400.3050 Clear Normal CLARITY Clear LAB L400.3200 Normal mg/dl Normal GLUCOSE, UR Normal LAB L400.3300 Negative mg/dL Normal BILIRUBIN URINE Negative LAB L400.3400 Negative mg/dl Normal KETONE UR Negative LAB L400.3465 1.002-1.030 Normal SP.GR. DIPSTX 1.010 LAB L400.3550 5.0 - 8.0 pH UR Normal 6.0 LAB L400.3600 Negative mg/dl High PROT 30 DIPSTX LAB L400.3700 Normal mg/dl Normal UROBILI Normal LAB L400.3750 Negative Normal NITRITE UR Negative LAB L400.3780 Negative /ul Normal OCCULT BLOOD-UR Negative LAB L400.3800 Negative /ul LEUK Normal ESTERASE Negative Performed By: #### L400.0100 #### [facility] [place], [address] CBC W/DIFF, AUTOMATED Collected: 03/16/2017 Status: F Source: [facility] 7:41 AM [facility] REPOSITORY Order Comment: HAS EMP LABS GETTING DONE TOO, SHARE IF NEEDED TO BE TYPE CODE TESTS RESULT OUT OF RANGE REFERENCE UNITS LAB L100.1000 4.4-11.0 K/mm3 Low WBC 3.6 LAB L100.1200 4.2-5.4 M/mm3 Low RBC 4.04 LAB L100.1300 12.0-15.0 g/dl Low HGB 11.9 LAB L100.1400 37-47 % Normal HCT 37.6 LAB L100.1500 81-99 fL Normal MCV 93.1 LAB L100.1600 27.0-32.0 pg Normal MCH 29.5 LAB L100.1700 32-36 g/gl Low MCHC 31.6 LAB L100.1810 11.6-14.6 % Normal RDW CV 13.2 LAB L100.1820 35.1-43.9 fl High RDW SD 44.6 LAB L100.1900 150-450 K/mm3 Normal PLT 236 LAB L100.2000 6.2-12.0 fl Normal MPV 9.3 LAB L100.2100 47-70 % Normal NEUT% 59.9 LAB L100.2200 19-41 % Normal LY% 28.1 LAB L100.2300 0-10 % Normal MONO% 8.6 LAB L100.2400 0-5 % Normal EO% 3.1 LAB L100.2500 0-1 % Normal BASO% 0.3 LAB L100.2550 0.0-0.9 % Normal IM GRAN % 0.000 Result Comment: IG% - Immature Granulocytes (promyelocytes, myelocytes and metamyelocytes) > 1% indicates that a LEFT SHIFT is Present. LAB L100.2620 2.0-7.7 X10 3/uL Normal Absolute Neut 2.2 LAB L100.2720 0.83-4.51 X10 3/ul Normal Absolute Lymph 1.01 Performed By: #### L100.0100 #### [facility] [address] [place], [place], [address] NICOTINE URINE DRUG Collected: 03/16/2017 Status: F Source: [facility] SCREEN 7:41 AM [facility] REPOSITORY TYPE CODE TESTS RESULT OUT OF RANGE REFERENCE UNITS LAB L505.6250 TO BE Normal CONFIRMED Result Comment: CONFIRMATORY TESTING FOR ALL POSITIVE URINE DRUG SCREEN RESULTS WILL ONLY BE SENT OUT UPON PHYSICIAN ORDER. The results of Urine Drug Screen methods provide only preliminary analytical test results. A more specific alternate chemical method must be used in order to obtain a confirmed analytical result. Gas chromatography/mass spectrometery (GC/MS) is the preferred confirmatory method. Clinical consideration and professional judgement should be applied to any drug of abuse test result, particularly when preliminary positive results are used. LAB L505.6270 <200 ng/mL Normal COT DRG Negative SCREEN Result Comment: Cotinine is the first-stage metabolite of Nicotine. Performed By: #### L505.6240 #### [facility] [address] [place], [address] RENAL PROFILE Collected: 03/16/2017 Status: F Source: [facility] 7:41 AM [facility] REPOSITORY Order Comment: HAS EMP LABS GETTING DONE TOO, SHARE IF NEEDED TO BE TYPE CODE TESTS RESULT OUT OF RANGE REFERENCE UNITS LAB L501.0100 74-106 mg/dL Normal GLU 87 Result Comment: Please note revised GLUCOSE reference range effective 2017. LAB L501.1000 7-18 mg/dL High BUN 23 LAB L501.1100 0.55-1.02 mg/dL High CREAT,SERUM 1.57 Result Comment: The validity of the calculated GFR AND GFRAA in patients over 70 years has not been determined. Clinical correlation is essential. LAB L501.1110 >60 mL/min Low EST GFR 38 Result Comment: Non- GFR Calc LAB L501.1115 >60 mL/min Low EST GFR - AA 46 Result Comment: GFR Calc LAB L501.1300 10-20 RATIO Normal BUN/CRE 14.6 LAB L501.1800 3.2-5.0 g/dL Normal ALB 3.6 LAB L501.2200 8.5-10.1 mg/dL CA Normal 9.0 LAB L501.2300 2.5-4.9 mg/dL Normal PHOS 3.0 LAB L501.5300 136-145 mmol/L NA Normal 142 LAB L501.5600 3.5-5.1 mmol/L Low K 3.3 LAB L501.5900 98-107 mmol/L CL Normal 103 LAB L501.6100 21.0-32.0 mmol/L Normal CO2 26.0 Performed By: #### L500.3600, L501.5200 #### [facility] [address] [place], [address] MAGNESIUM Collected: 03/16/2017 Status: F Source: [facility] 7:41 AM [facility] REPOSITORY Order Comment: HAS EMP LABS GETTING DONE TOO, SHARE IF NEEDED TO BE TYPE CODE TESTS RESULT OUT OF RANGE REFERENCE UNITS LAB L501.5200 1.6-2.6 mg/dL Normal MG 1.9 Result Comment: Please note revised Magnesium reference range effective 2017. Performed By: #### L500.3600, L501.5200 #### [facility] [address] [place], [place], [address] MICROALB:CREAT Collected: 03/16/2017 Status: F Source: [facility] RATIO,RANDOM UR 7:41 AM [facility] REPOSITORY Order Comment: HAS EMP LABS GETTING DONE TOO, SHARE IF NEEDED TO BE TYPE CODE TESTS RESULT OUT OF RANGE REFERENCE UNITS LAB L501.1200 NO RANGE EST. mg/dL Normal UR CREAT 47.70 LAB L502.0500 NO RANGE EST. mg/L Normal 142.0 MICROALBUMIN ,UR LAB L502.0600 <30 mg/g CRE mg/g CRE High 297.7 MALB:CREAT Performed By: #### L502.0250 #### [facility] [address] [place], [place], [address] EMPLOYEE PROFILE Collected: 03/16/2017 Status: F Source: [facility] 7:41 AM [facility] REPOSITORY TYPE CODE TESTS RESULT OUT OF RANGE REFERENCE UNITS LAB L501.0100 74-106 mg/dL Normal GLU 88 Result Comment: Please note revised GLUCOSE reference range effective 2017. LAB L501.1000 7-18 mg/dL High BUN 23 LAB L501.1100 0.55-1.02 mg/dL High CREAT,SERUM 1.58 Result Comment: The validity of the calculated GFR AND GFRAA in patients over 70 years has not been determined. Clinical correlation is essential. LAB L501.1110 >60 mL/min Low EST GFR 37 Result Comment: Non- GFR Calc LAB L501.1115 >60 mL/min Low EST GFR - AA 45 Result Comment: GFR Calc LAB L501.1300 10-20 RATIO Normal BUN/CRE 14.6 LAB L501.1400 2.6-6.0 mg/dL Normal URIC 4.2 Result Comment: The drugs N-Acetylcysteine and Metamizole may falsely depress this assay. LAB L501.1500 6.4-8.2 g/dL Normal T PROT 7.0 LAB L501.1800 3.2-5.0 g/dL Normal ALB 3.5 LAB L501.1950 2.2-4.2 g/dL Normal GLOB 3.5 LAB L501.2000 0.9-2.4 RATIO Normal A/G 1.0 LAB L501.2200 8.5-10.1 mg/dL Normal CA 8.8 LAB L501.2300 2.5-4.9 mg/dL Normal PHOS 3.0 LAB L501.4100 15-37 U/L Normal AST 18 LAB L501.4305 45-117 U/L Normal ALK P 47 LAB L501.4405 13-56 U/L Normal ALT 23 Result Comment: Please note revised ALT reference range effective 2017. LAB L501.4600 0.20-1.00 mg/dL Normal T BILI 0.40 LAB L501.4700 0.00-0.30 mg/dL Normal D BILI 0.09 LAB L501.4900 200 mg/dL Normal CHOL 189 Result Comment: <200 mg/dL Desirable 200-240 mg/dL Borderline >240 mg/dL High Risk LAB L501.5000 mg/dL Normal TRIG 63 Result Comment: The drugs N-Acetylcysteine and Metamizole may falsely depress this assay. Serum Triglycerides Reference Interval Normal <150 mg/dL Borderline high 150 - 199 mg/dL High 200 - 499 mg/dL Very High > or = 500 mg/dL LAB L501.5300 136-145 mmol/L Normal NA 141 LAB L501.5600 3.5-5.1 mmol/L Low K 3.3 LAB L501.5900 98-107 mmol/L Normal CL 104 LAB L501.6100 21.0-32.0 mmol/L Normal CO2 26.0 LAB L501.6200 5-15 Normal GAP 11 LAB L501.6400 mg/dL Normal HDL 108 Result Comment: The drugs N-Acetylcysteine and Metamizole may falsely depress this assay. Reference Range HDL <40 mg/dL Low HDL Cholesterol HDL >or= 60 mg/dL High HDL Cholesterol LAB L501.6475 Normal CHOL:HDL 1.80 LAB L501.6500 0-130 mg/dL Normal LDL 68 LAB L501.6600 5-40 mg/dL Normal VLDL 13 LAB L504.2610 84-246 U/L Normal LDH 139 Performed By: #### L500.2900 #### [facility] [address] [place], [place], [address] VITAMIN D,25 HYDROXY Collected: 03/16/2017 Status: F Source: [place] 7:41 AM [facility] REPOSITORY Order Comment: HAS EMP LABS GETTING DONE TOO, SHARE IF NEEDED TO BE TYPE CODE TESTS RESULT OUT OF RANGE REFERENCE UNITS LAB L506.1000 19.95-100.01 ng/mL Normal Vitamin D 23.2 25-OH Result Comment: Vitamin D 25(OH) Status Range Deficiency <20 ng/mL (50nmol/L) Insuffciency 20 - 30 ng/mL (50 - 75 nmol/L) Sufficiency 30 - 100 ng/mL (75 - 250 nmol/L) Toxicity >100 ng/mL (>250 nmol/L) Performed By: #### L506.1000 #### [facility] [address] [place], [address] PTHIN Collected: 03/16/2017 Status: F Source: [place]ET[place] 7:41 AM [facility] REPOSITORY Order Comment: HAS EMP LABS GETTING DONE TOO, SHARE IF NEEDED TO BE TYPE CODE TESTS RESULT OUT OF RANGE REFERENCE UNITS LAB L509.1000 18.4-80.1 pg/mL Normal PTHIN 19.5 Result Comment: Please Note: PTH INTACT METHOD AND REFERENCE RANGE CHANGE Effective 01/25/2017. Performed By: #### L509.1000 #### [facility] [address], [address] ALLERGIES ALLERGIES DATE TYPE / CODE NAME / CODE REACTION SEVERITY SOURCE 04/26/2017 Drug codeine/F0060 Nausea [facility] Allergy/4160 67955(RXNORM) Hospital 20240(SNOMED Repository CT) 04/26/2017 Drug aspirin/F0060 Nausea [place] [facility] Allergy/4160 77175(RXNORM) Hospital [facility](SNOMED Repository CT) 04/23/2015 Drug No Known Unknown [facility] Allergy/4160 Allergies/F00 Hospital [facility](SNOMED [id number](RXNOR Repository CT) M) ENCOUNTERS ENCOUNTERS ADMIT/DISCHARGE ACCOUNT ADMITTING ENCOUNTER LOCATION SOURCE NUMBER CLASS 02/19/2018 [id number] Ambulatory Zach Wickes 7 [facility] ing:OPBI Repository 01/19/2018 [id number] Ambulatory Zach Zach 3 [facility] ing:WOBLAB Repository 01/04/2018/ [id number] Ambulatory BMSBuilding:B Zach 8 1 [place] Repository 09/28/2017 [id number] Ambulatory Zach Zach 8 [facility] ing:LAB.FUTUR Repository E 08/30/2017 [id number] Ambulatory Zach Wickes 9 [facility] ing:LAB Repository 07/24/2017/ [id number] Ambulatory [facility] [place] [facility] 05/23/2017/ [id number] Ambulatory BMSBuilding:B Zach 8 4 [place].[facility] [place] Rep[facility] 04/26/2017/ [id number] Ambulatory BMSBuilding:B Wickes 8 4 MS.[facility] Repository 04/12/2017 [id number] Ambulatory Wickes Wickes 5 [facility] ing:[place] Repository 03/30/2017/ [id number] Ambulatory BMSBuilding:B Zach 8 7 [place].[facility] [place] Repository 03/16/2017 [id number] Ambulatory Wickes Zach 0 [facility] ing:LAB Repository 03/16/2017 [id number] Ambulatory Zach Wickes 9 [facility] ing:LAB Repository PAYERS PAYERS ENCOUNTER GUARANTOR PAYER SUBSCRIBER SOURCE 02/19/2018 MARILEE Bailey Primary Insurance:[facility] MARILEE Whippleshahram [id number] [facility] [id number] Rosa Memorial [facility], Number: Repository [place] [id number]: [id number] Date:8472-28-56[address] () [address]IDZRFHYRO, [place] [address]NV: CHECK WEBSITE 02/19/2018 Secondary NOT GIVENUNK Zach Insurance:SELF PAY [facility] Number: Effective Repository Date:2018-01-03 01/19/2018 MARILEE Bailey Primary Insurance:[facility] MARILEE Serrano [id number] [facility] [id number] [facility], Number: Repository [place] [id number]: [id number] Date:1022-88-00XN [address] () [address]MLDXMLAAP, [place] [address]QV: CHECK WEBSITE 01/19/2018 Secondary NOT GIVENUNK Wickes Insurance:SELF PAY [facility] Number: Effective Repository Date:2018-01-19 01/04/2018 MARILEE Bailey Primary Insurance:[facility] MARILEE Serrano [id number] [facility] [id number] Rosa Memorial [facility], Number: Repository [place] [address]Ste: [id number] Date:8941-46-25LC [address] () [address]EDLF, [place] [address]DM: CHECK WEBSITE 01/04/2018 Secondary NOT GIVENUNK Wickes Insurance:SELF PAY [facility] Number: Effective Repository Date:2018-01-04 09/28/2017 MARILEE Bailey Primary Insurance:[facility] MARILEE Serrano [id number] [facility] [id number] Rosa Memorial [facility], Number: Repository [place] [id number]: [id number] Date:0444-60-43SF [address] () [address]JQTGIFABR, [place] [address]CA: CHECK WEBSITE 09/28/2017 Secondary NOT GIVENUNK Zach Insurance:SELF PAY [facility] Number: Effective Repository Date:2017-09-27 08/30/2017 MARILEE R Primary Insurance:[facility] MARILEE Serrano [id number] [facility] [id number] Rosa Memorial Hospital, Number: Repository [place] [id number]: [id number] Date:1105-15-05ZZ [address] () [address]LNJHQHORJ, [place] [address]KJ: CHECK WEBSITE 08/30/2017 Secondary NOT GIVENUNK Wickes Insurance:SELF PAY [facility] Number: Effective Repository Date:2017-08-30 07/24/2017 MARILEE Primary Insurance:[facility] MARILEE [id number] [facility] [id number] [facility], Number: Repository [place] [id number]: [id number] Date:5749-04-32UH [address] () [address]RVVIMFCKF, [place] [address]GB: CHECK WEBSITE 07/24/2017 Secondary NOT GIVENUNK Zach Insurance:SELF PAY [facility] Number: Effective Repository Date:2017-07-24 05/23/2017 MARILEE Primary Insurance:[facility] MARILEE Serrano [id number] [facility] [id number] Rosa Memorial [facility], Number: Repository [place] [id number]: [id number] Date:6231-03-98CQ [address]OX () [address]NHFVHVDXM, [place] [address]MI: CHECK WEBSITE 05/23/2017 Secondary NOT GIVENUNK Wickes Insurance:SELF PAY [facility] Number: Effective Repository Date:2017-05-23 04/26/2017 MARILEE Primary Insurance:[facility] MARILEE GARCIA [facility]: [facility] [id number] Rosa Memorial Hospital, Number: Repository [place] [id number]: [id number] Date:6245-14-12FX [address] () [address]ZTYILCQTH, [place] [address]LA: CHECK WEBSITE 04/26/2017 Secondary NOT GIVENUNK Zach Insurance:SELF PAY [facility] Number: Effective Repository Date:2017-04-26 04/12/2017 MARILEE Primary Insurance:[facility] MARILEE GARCIA [facility]OB: [facility] [id number] Rosa Memorial [facility], Number: Repository [place] [id number]: [id number] Date:8345-74-83DA [address] () [address]FBLCRIZUU, [place] [address]JC: CHECK WEBSITE 04/12/2017 Secondary NOT GIVENUNK Zach Insurance:SELF PAY [facility] Number: Effective Repository Date:2017-04-12 03/30/2017 MARILEE Primary Insurance:[facility] MARILEE [id number] [facility]OB: [facility] [id number] Rosa Memorial Hospital, Number: Repository [place] [id number]: [id number] Date:7474-74-70QI [address]OX () [address]LRGYBDDTF, [place] [address]YZ: CHECK WEBSITE 03/30/2017 Secondary NOT GIVENUNK Wickes Insurance:SELF PAY [facility] Number: Effective Repository Date:2017-03-28 03/16/2017 MARILEE Primary NOT GIVENUNK Zach [id number] Insurance:SELF PAY [facility], Number: Effective [place] [id number]: Date:2017-03-16 (TF) 03/16/2017 MARILEE Primary Insurance:[facility] MARILEE GARCIA [facility] WESTSUNNYB: [facility] [id number] Rosa Memorial Hospital, Number: Repository [place] [id number]: [id number] Date:8659-00-55MD BOX (IG) [id number], [place] [address]LP: CHECK WEBSITE 03/16/2017 Secondary NOT GIVENUNK Zach Insurance:SELF PAY [facility]: Effective Repository Date:2017-03-16
== END ==
PROVIDERS: Visit Provider Obstetrics & Gynecology
DX: N92.6 Irregular menstruation, unspecified (principal)
CPT/HCPCS: 36415; 82670; 84144

== ENCOUNTER → 2018-02-19 07:00 | Outpatient (CLI) | payer OTHER, SELFPAY ==
[2018-01-04 11:14] VITALS: BMI 23.7
--- NOTE | 2018-02-19 07:01 | BI_ITS ---
MAMMOGRAPHY - BILATERAL SCREENING REASON FOR EXAM: Female, 47 years old. Routine annual screening examination. PERTINENT HISTORY: Non-contributory. TECHNIQUE: Digital bilateral breast jason (3D mammographic acquisition) in the CC and MLO projections. 2-D mediolateral oblique (MLO) and craniocaudad (CC) views of both breasts were obtained. CAD: Full Field Digital Mammography with Computer Added Detection was performed. COMPARISON: Comparison is made with prior study dated October 03, 2013. FINDINGS: Breast Composition: The breasts are heterogeneously dense, which may obscure small masses. There are no dominant masses or suspicious calcifications. No other significant abnormalities are identified. There has been no significant change since the prior study. BI/SCREENING MAMM (CAD), BILAT IMPRESSION: Stable bilateral screening mammogram. Yearly follow-up mammogram recommended. (A) ASSESSMENT CATEGORY: BIRADS Category 1: Negative. A letter regarding these results will be sent to the patient by the facility within 30 days. Approximately 10% of breast cancers are not detected by mammography. A normal mammogram should not delay biopsy of a clinically suspicious abnormality. [id number] Electronically Signed: Bossman Ryan MD at 9:12 EST Tel [phone], Service support ,
== END ==
PROVIDERS: Family Provider Family Medicine; PCP Family Medicine; Visit Provider Obstetrics & Gynecology
DX: Z12.31 Encounter for screening mammogram for malignant neoplasm of breast (principal)
CPT/HCPCS: 77063; 77067

== ENCOUNTER → 2018-03-06 06:23 | Outpatient (CLI) | payer OTHER, SELFPAY ==
[2018-01-04 11:14] VITALS: BMI 23.7
[2018-03-06 07:02] LABS: Protein, Urine (Random) 22.3 mg/dL (<11.9); Protein:Creat Ratio 511 mg/g CRE (0-200)
[2018-03-06 07:34] LABS: Albumin, Serum 3.3 g/dL (3.2-5.0); BUN 26 mg/dL (7-18); BUN/Creat Ratio 15.3 RATIO (10-20); Calcium,Total 8.4 mg/dL (8.5-10.1); Chloride 104 mmol/L (98-107); EST Glomerular Filtration Rate 34 mL/min (>60); Est Glom Filt Rate - Afr Amer 41 mL/min (>60); Glucose 90 mg/dL (74-106); Phosphorus 2.7 mg/dL (2.5-4.9); Potassium 3.4 mmol/L (3.5-5.1); Sodium Level 140 mmol/L (136-145)
[2018-03-06 08:41] LABS: PTHIN 46.3 pg/mL (18.4-80.1); Vitamin D,25 Hydroxy 33.8 ng/mL (29.95-100.01)
== END ==
PROVIDERS: Family Provider Family Medicine; PCP Family Medicine; Referring Provider Internal Medicine Nephrology; Visit Provider Internal Medicine Nephrology
DX: N18.3 Chronic kidney disease, stage 3 (moderate) (principal); D63.1 Anemia in chronic kidney disease; N25.81 Secondary hyperparathyroidism of renal origin
CPT/HCPCS: 36415; 80069; 82306; 82570; 83970; 84156

== ENCOUNTER → 2018-08-24 | Outpatient (CLI) | payer OTHER, SELFPAY ==
[2018-05-02 16:00] VITALS: BMI 23.7
[2018-08-30 09:24] LABS: HPV Reflexed? NOT INDICATED
== END | disposition home or self-care (01) ==
LOC: LABSPEC 14:36
PROVIDERS: Family Provider Family Medicine; PCP Family Medicine; Visit Provider Obstetrics & Gynecology
DX: Z12.4 Encounter for screening for malignant neoplasm of cervix (principal)
CPT/HCPCS: 88175; G0145

== ENCOUNTER → 2018-08-29 | Outpatient (CLI) | payer OTHER, SELFPAY ==
[2018-05-02 16:00] VITALS: BMI 23.7
[2018-08-29 07:08] LABS: Hematocrit 40.9 % (37-47); Mean Corp Hgb Conc 31.8 g/dL (32-36); Mean Corpuscular Hgb 29.5 pg (27.0-32.0); Mean Platelet Vol. 9.6 fl (6.2-12.0); Platelet Count 267 K/mm3 (150-450); RBC Distribution Width CV 13.8 % (11.6-14.6); RBC Distribution Width SD 47.4 fl (35.1-43.9); White Blood Count 4.5 K/mm3 (4.4-11.0)
[2018-08-29 07:27] LABS: Albumin, Serum 3.6 g/dL (3.2-5.0); BUN 34 mg/dL (7-18); BUN/Creat Ratio 18.9 RATIO (10-20); Calcium,Total 8.8 mg/dL (8.5-10.1); Chloride 105 mmol/L (98-107); EST Glomerular Filtration Rate 32 mL/min (>60); Est Glom Filt Rate - Afr Amer 39 mL/min (>60); Glucose 81 mg/dL (74-106); Phosphorus 3.2 mg/dL (2.5-4.9); Potassium 3.6 mmol/L (3.5-5.1); Sodium Level 138 mmol/L (136-145)
[2018-08-29 07:30] LABS: Protein:Creat Ratio 390 mg/g CRE (0-200)
[2018-08-29 08:52] LABS: Vitamin D,25 Hydroxy 35.4 ng/mL (29.95-100.01)
[2018-08-29 08:53] LABS: PTHIN 52.2 pg/mL (18.4-80.1)
== END | disposition home or self-care (01) ==
LOC: LAB 06:29
PROVIDERS: Family Provider Family Medicine; PCP Family Medicine; Referring Provider Internal Medicine Nephrology; Visit Provider Internal Medicine Nephrology
DX: N18.3 Chronic kidney disease, stage 3 (moderate) (principal)
CPT/HCPCS: 36415; 80069; 82306; 82570; 83970; 84156; 85027

== ENCOUNTER → 2018-09-14 17:35 | Outpatient (CLI) | payer OTHER, SELFPAY ==
[2018-09-07 15:34] VITALS: BMI 23.7
--- NOTE | 2018-09-14 17:46 | US_ITS ---
STUDY: ULTRASOUND OF THE FEMALE PELVIS - COMPLETE REASON FOR EXAM: Female, 48 years old. Abnormal uterine bleeding LMP: September 10, 2018 TECHNIQUE: Transabdominal and endovaginal TECHNICAL QUALITY: Adequate. COMPARISON: None. FINDINGS: The uterus is anteverted and is in a midline position. The uterus measures 9.5 x 7.5 x 6.1 cm. Normal uterine cervix. The endometrium measures 4 mm in thickness, and is hyperechoic. There is no demonstrated endometrial mass. 3 distinct fibroids measuring 1.3 to 1.5 cm. The patient does not have an I.U.D. The right ovary is visualized. The right ovary measures 5.0 x 3.8 x 3.0 cm. There is a 3.6 cm right ovarian cyst. There is no visualized right adnexal mass or complex lesion. There is normal arterial and normal venous vascularity. The left ovary is visualized. The left ovary measures 2.8 x 2.5 x 1.8 cm. There is no left ovarian cyst or ovarian mass. There is no visualized left adnexal mass or complex lesion. There is normal arterial and normal venous vascularity. There is mild fluid in the cul-de-sac. US/Pelvic (Non ) IMPRESSION: Small uterine fibroids. Right ovarian cyst. Mild pelvic fluid. Electronically Signed: Ad Jones DO at 20:00 EDT Tel [phone], Service support ,
--- NOTE | 2018-09-14 17:57 | US_ITS ---
STUDY: ULTRASOUND OF THE FEMALE PELVIS - COMPLETE REASON FOR EXAM: Female, 48 years old. Abnormal uterine bleeding LMP: September 10, 2018 TECHNIQUE: Transabdominal and endovaginal TECHNICAL QUALITY: Adequate. COMPARISON: None. FINDINGS: The uterus is anteverted and is in a midline position. The uterus measures 9.5 x 7.5 x 6.1 cm. Normal uterine cervix. The endometrium measures 4 mm in thickness, and is hyperechoic. There is no demonstrated endometrial mass. 3 distinct fibroids measuring 1.3 to 1.5 cm. The patient does not have an I.U.D. The right ovary is visualized. The right ovary measures 5.0 x 3.8 x 3.0 cm. There is a 3.6 cm right ovarian cyst. There is no visualized right adnexal mass or complex lesion. There is normal arterial and normal venous vascularity. The left ovary is visualized. The left ovary measures 2.8 x 2.5 x 1.8 cm. There is no left ovarian cyst or ovarian mass. There is no visualized left adnexal mass or complex lesion. There is normal arterial and normal venous vascularity. There is mild fluid in the cul-de-sac. US/Transvaginal Non- IMPRESSION: Small uterine fibroids. Right ovarian cyst. Mild pelvic fluid. Electronically Signed: Ad Jones DO at 20:00 EDT Tel [phone], Service support ,
== END ==
PROVIDERS: Family Provider Family Medicine; PCP Family Medicine; Referring Provider Obstetrics & Gynecology; Visit Provider Obstetrics & Gynecology
DX: N93.9 Abnormal uterine and vaginal bleeding, unspecified (principal)
CPT/HCPCS: 76830; 76856; 93976

== ENCOUNTER → 2019-02-22 10:34 | Outpatient (CLI) | payer OTHER, SELFPAY ==
[2018-09-07 15:34] VITALS: BMI 23.7
[2019-02-22 14:31] LABS: Estradiol 50.7 pg/mL
[2019-02-22 14:38] LABS: Progesterone Level 5.58 ng/mL (See Comment)
== END ==
PROVIDERS: Visit Provider Obstetrics & Gynecology
DX: N92.6 Irregular menstruation, unspecified (principal); N92.0 Excessive and frequent menstruation with regular cycle
CPT/HCPCS: 36415; 82670; 84144

== ENCOUNTER → 2019-03-06 06:52 | Outpatient (CLI) | payer OTHER, SELFPAY ==
[2018-09-07 15:34] VITALS: BMI 23.7
[2019-03-06 07:34] LABS: Hematocrit 39.1 % (37-47); Hemoglobin 12.1 g/dL (12.0-15.0); Mean Corp Hgb Conc 30.9 g/dL (32-36); Mean Corpuscular Hgb 28.6 pg (27.0-32.0); Mean Corpuscular Volume 92.4 fL (81-99); Mean Platelet Vol. 9.4 fl (6.2-12.0); Platelet Count 263 K/mm3 (150-450); RBC Distribution Width CV 14.1 % (11.6-14.6); RBC Distribution Width SD 47.8 fl (35.1-43.9); Red Blood Count 4.23 M/mm3 (4.2-5.4); White Blood Count 3.8 K/mm3 (4.4-11.0)
[2019-03-06 07:46] LABS: Protein, Urine (Random) 39.5 mg/dL (<11.9); Protein:Creat Ratio 451 mg/g CRE (0-200)
[2019-03-06 08:27] LABS: Albumin, Serum 3.6 g/dL (3.2-5.0); BUN 36 mg/dL (7-18); BUN/Creat Ratio 19.6 RATIO (10-20); Calcium,Total 9.2 mg/dL (8.5-10.1); Chloride 105 mmol/L (98-107); Creatinine, Serum 1.84 mg/dL (0.55-1.02); EST Glomerular Filtration Rate 31 mL/min (>60); Est Glom Filt Rate - Afr Amer 38 mL/min (>60); Glucose 83 mg/dL (74-106); Phosphorus 3.4 mg/dL (2.5-4.9); Potassium 3.7 mmol/L (3.5-5.1); Sodium Level 139 mmol/L (136-145)
== END ==
PROVIDERS: PCP Family Medicine; Referring Provider Internal Medicine Nephrology; Visit Provider Internal Medicine Nephrology
DX: N18.3 Chronic kidney disease, stage 3 (moderate) (principal)
CPT/HCPCS: 36415; 80069; 82306; 82570; 83970; 84156; 85027

== ENCOUNTER → 2019-09-03 12:32 | Outpatient (CLI) | payer OTHER, SELFPAY ==
[2019-03-26 15:26] VITALS: BMI 23.7
[2019-09-03 13:06] LABS: Hematocrit 35.3 % (37-47); Hemoglobin 10.7 g/dL (12.0-15.0); Mean Corp Hgb Conc 30.3 g/dL (32-36); Mean Corpuscular Hgb 26.9 pg (27.0-32.0); Mean Corpuscular Volume 88.7 fL (81-99); Mean Platelet Vol. 9.4 fl (6.2-12.0); Platelet Count 287 K/mm3 (150-450); RBC Distribution Width CV 14.8 % (11.6-14.6); RBC Distribution Width SD 47.1 fl (35.1-43.9); Red Blood Count 3.98 M/mm3 (4.2-5.4); White Blood Count 4.1 K/mm3 (4.4-11.0)
[2019-09-03 13:12] LABS: Protein:Creat Ratio 528 mg/g CRE (0-200)
[2019-09-03 13:32] LABS: Albumin, Serum 3.7 g/dL (3.2-5.0); BUN 23 mg/dL (7-18); BUN/Creat Ratio 13.1 RATIO (10-20); Calcium,Total 8.7 mg/dL (8.5-10.1); Chloride 105 mmol/L (98-107); Creatinine, Serum 1.75 mg/dL (0.55-1.02); EST Glomerular Filtration Rate 33 mL/min (>60); Est Glom Filt Rate - Afr Amer 40 mL/min (>60); Glucose 89 mg/dL (74-106); Phosphorus 2.9 mg/dL (2.5-4.9); Potassium 3.8 mmol/L (3.5-5.1); Sodium Level 137 mmol/L (136-145)
[2019-09-03 13:35] LABS: PTHIN 63.7 pg/mL (18.4-80.1); Vitamin D,25 Hydroxy 54.8 ng/mL
== END ==
PROVIDERS: PCP Family Medicine; Referring Provider Internal Medicine Nephrology; Visit Provider Internal Medicine Nephrology
DX: N18.3 Chronic kidney disease, stage 3 (moderate) (principal); N25.81 Secondary hyperparathyroidism of renal origin; D63.1 Anemia in chronic kidney disease
CPT/HCPCS: 36415; 80069; 82306; 82570; 83970; 84156; 85027

== ENCOUNTER → 2019-09-19 07:51 | Outpatient (CLI) | payer OTHER, SELFPAY ==
[2019-03-26 15:26] VITALS: BMI 23.7
--- NOTE | 2019-09-19 07:54 | BI_ITS ---
MAMMOGRAPHY - BILATERAL SCREENING REASON FOR EXAM: Female, 49 years old. Routine annual screening examination. PERTINENT HISTORY: Non-contributory. TECHNIQUE: Digital bilateral breast holden (3D mammographic acquisition) in the CC and MLO projections. 2-D mediolateral oblique (MLO) and craniocaudad (CC) views of both breasts were obtained. CAD: Full Field Digital Mammography with Computer Added Detection was performed. COMPARISON: Comparison is made with prior study dated 08/19/2018 and 10/03/2013. FINDINGS: Breast Composition: The breasts are heterogeneously dense, which may obscure small masses. There are no dominant masses or suspicious calcifications. No other significant abnormalities are identified. There has been no significant change since the prior study. BI/SCREEN MAMM (CAD) W/HOLDEN BILAT IMPRESSION: Stable bilateral screening mammogram. Yearly follow-up mammogram recommended. (A) ASSESSMENT CATEGORY: BIRADS Category 1: Negative. A letter regarding these results will be sent to the patient by the facility within 30 days. Approximately 10% of breast cancers are not detected by mammography. A normal mammogram should not delay biopsy of a clinically suspicious abnormality. [id number] Electronically Signed: Bossman Ryan, at 10:25 EDT , Service support ,
== END ==
PROVIDERS: PCP Family Medicine; Referring Provider Obstetrics & Gynecology; Visit Provider Obstetrics & Gynecology
DX: Z12.31 Encounter for screening mammogram for malignant neoplasm of breast (principal)
CPT/HCPCS: 77063; 77067

== ENCOUNTER → 2020-03-04 07:05 | Outpatient (CLI) | payer OTHER, SELFPAY ==
[2019-03-26 15:26] VITALS: BMI 23.7
[2020-03-04 08:07] LABS: Protein, Urine (Random) 33.6 mg/dL (<11.9); Protein:Creat Ratio 687 mg/g CRE (0-200)
== END ==
PROVIDERS: PCP Family Medicine; Referring Provider Internal Medicine Nephrology; Visit Provider Internal Medicine Nephrology
DX: N18.30 Chronic kidney disease, stage 3 unspecified (principal)
CPT/HCPCS: 82570; 84156

== ENCOUNTER 2020-07-21 05:18 | Day surgery (SDC) | payer OTHER, SELFPAY ==
[2020-06-02 14:20] VITALS: BMI 27.3
[2020-07-21] VITALS (7 sets, daily range): BP systolic 102–129; BP diastolic 73–88; PULSE 63–76; RESP 16; TEMP 36.7–37.2; O2SAT 100; BMI 21.8
[2020-07-21 05:45] LABS: Internal QC Validated? YES +Cl - CLEAR BKGD; Pregnancy, Urine Negative Negative
[2020-07-21] MEDS: Lactated Ringers 1,000 ML 100 ML IV (06:05)
--- NOTE | 2020-07-21 06:06 | PCM.HP.STD ---
HPI - General HPI Narrative LEONID FARR, is a 50 F who presents for a screening colonoscopy today. She has no GI symptoms. No bright red blood per rectum or melena. No history of polyps. No history of previous colonoscopy. No family history of colon cancer. Her most significant chronic medical issue is stage III chronic renal insufficiency. She does have nephrosclerosis. Hypertension. No complaint of abdominal pain. No unexpected weight loss. No history of DVT. She is not on any anticoagulation. [facility] Medical History (Updated 07/21/20 @ 06:[address] Israel Juan MD) Alcohol use Anemia Chronic kidney disease Easy bruising Former smoker History of stress test Hypertension Seasonal allergies Syncope Home Medications diphenhydramine HCl 25 mg capsule 25 mg PO QHS PRN 04/26/17 [History Last Taken Unknown] multivitamin 1 cap PO QAM 04/26/17 [History Last Taken Unknown] progesterone micronized 100 mg capsule 40 mg PO QHS cap 04/01/20 [History Last Taken Unknown] hydrochlorothiazide 25 mg tablet 25 mg PO QAM #90 tab 06/29/20 [Rx Last Taken 07/21/20] fluticasone propionate [Flonase Allergy Relief] 1 spray INTRANASAL DAILY PRN 07/16/20 [History Last Taken Unknown] losartan 100 mg PO QHS 07/16/20 [History Last Taken Unknown] Allergy/AdvReac Type Severity Reaction Status Date / Time aspirin AdvReac Mild Nausea Verified 07/21/20 05:52 codeine AdvReac Mild Nausea Verified 07/21/20 05:52 Family History Mother auto immune disease Father Asthma Hypertension Grandmother Myocardial infarction Hyperlipemia Surgical History nodules removed from vocal cords Social History Smoking Status: Former smoker how long ago did patient quit smokin alcohol intake: current alcohol intake frequency: a few times a month Alcohol type: beer substance use type: does not use what type of physical activity do you participate in: aerobics and weight training frequency: 3-4 times per week ROS Constitutional Constitutional: Reports systems reviewed and no addt'l complaints, except as documented Cardiovascular Cardiovascular: Denies chest pain Respiratory/Chest Respiratory/Chest: Denies shortness of breath at rest Gastrointestinal Gastrointestinal: Denies abdominal pain, change in bowel habits, hematochezia or melena Vital Signs Vital Signs Vital Signs: 07/21/20 05:46 07/21/20 05:49 Temperature 98.9 F Temperature Source Temporal Pulse Rate 76 Respiratory Rate 16 Respiratory Pattern Normal Blood Pressure 129/88 H Blood Pressure Mean 101 Blood Pressure Source Monitor Blood Pressure Position Sitting Blood Pressure Location Right Arm Pulse Ox 100 Oxygen Delivery Method Room Air Weight Weight: 135 lb 3.2 oz Body Mass Index (BMI) 21.8 Physical Exam Const alert, oriented x3 and no apparent distress General Appearance: cooperative and comfortable Eyes General Eye: normal appearance of both eyes Neck General: normal visual inspection Chest inspection of chest normal Resp Effort and Inspection: able to speak in complete sentences and symmetric chest movement Auscultation: clear to auscultation bilaterally Cardio regular rate and regular rhythm GI soft to palpation, non-tender and non-distended Extremity no calf tenderness Neuro oriented x3 Psych thought process normal Results Lab / Micro Data Labs: Laboratory Results - last 24 hr 07/21/20 05:37 Urine Test Negative Assessment & Plan Assessment/Plan (1) Screening for intestinal cancer: PLAN: 50-year-old female presents for screening colonoscopy today. She is aware of the technique, benefit, risk, alternatives. She has had an opportunity to ask and have questions answered. She presents via open access today. Israel Juan M.D., F.A.C.S.
--- NOTE | 2020-07-21 06:57 | OP.COLON_ITS ---
Patient Name: Marilee Garcia Procedure Date: 07/21/2020 6:13 AM Date of : 1970 Age: 50 Procedure: Colonoscopy Indications: Screening for colorectal malignant neoplasm Providers: Israel Juan MD Medicines: See the Anesthesia note for documentation of the administered medications Patient Profile: Last Colonoscopy: none. The patient's first colonoscopy is today. Complications: No immediate complications. Procedure: Pre-Anesthesia Assessment: - Prior to the procedure, a History and Physical was performed, and patient medications and allergies were reviewed. The patient's tolerance of previous anesthesia was also reviewed. The risks and benefits of the procedure and the sedation options and risks were discussed with the patient. All questions were answered, and informed consent was obtained. Prior Anticoagulants: The patient has taken no previous anticoagulant or antiplatelet agents. ASA Grade Assessment: II - A patient with mild systemic disease. After reviewing the risks and benefits, the patient was deemed in satisfactory condition to undergo the procedure. After I obtained informed consent, the scope was passed under direct vision. Throughout the procedure, the patient's blood pressure, pulse, and oxygen saturations were monitored continuously. The Colonoscope was introduced through the anus and advanced to the cecum, identified by appendiceal orifice and ileocecal valve. The colonoscopy was performed without difficulty. The patient tolerated the procedure well. The quality of the bowel preparation was good. The ileocecal valve and the appendiceal orifice were photographed. Scope In: 6:37:40 AM Scope Withdrawal Time 0 hours 8 minutes 53 seconds Scope Out: 6:52:28 AM Total Procedure Duration Time 0 hours 14 minutes 48 seconds Findings: The digital rectal exam findings include non-thrombosed internal hemorrhoids and internal hemorrhoids that prolapse with straining, but spontaneously regress to the resting position (Grade II). Pertinent negatives include normal sphincter tone. The left colon was mildly tortuous. The exam was otherwise without abnormality. Impression: - Non-thrombosed internal hemorrhoids and internal hemorrhoids that prolapse with straining, but spontaneously regress to the resting position (Grade II) found on digital rectal exam. - Tortuous colon. - The examination was otherwise normal. - No specimens collected. Recommendation: - Discharge patient to home. - Resume previous diet. - Continue present medications. - Repeat colonoscopy in 10 years for screening purposes. Procedure Code(s): --- Professional --- 23864, Colonoscopy, flexible; diagnostic, including collection of specimen(s) by brushing or washing, when performed (separate procedure) Diagnosis Code(s): --- Professional --- Z12.11, Encounter for screening for malignant neoplasm of colon K64.1, Second degree hemorrhoids Q43.8, Other specified congenital malformations of intestine CPT copyright 2017 [employer]. All rights reserved. The codes documented in this report are preliminary and upon residential framing carpenter review may be revised to meet current compliance requirements. Israel Juan MD 07/21/2020 6:56:50 AM This report has been signed electronically. Number of Addenda: 0 Note Initiated On: 07/21/2020 6:13 AM
--- NOTE | 2020-07-21 06:57 | OP.CCLET_ITS ---
07/21/2020 Srinivasan Lr Re : Colonoscopy procedure for Marilee Garcia Dear Dr. Lr This procedure was performed on Tuesday, July 21, 2020. My impressions and recommendations are as follows: Impressions : - Non-thrombosed internal hemorrhoids and internal hemorrhoids that prolapse with straining, but spontaneously regress to the resting position (Grade II) found on digital rectal exam. - Tortuous colon. - The examination was otherwise normal. - No specimens collected. Recommendations : - Discharge patient to home. - Resume previous diet. - Continue present medications. - Repeat colonoscopy in 10 years for screening purposes. My findings are described in the full procedure note, which is enclosed. If I can be of further assistance, please feel free to contact me at Doctor phone number(s): Work: . Sincerely, Israel Juan MD 07/21/2020 6:56:50 AM This report has been signed electronically.
== END 2020-07-21 07:42 ==
LOC: EN 05:19 → AC 05:20
PROVIDERS: Anesthesiology; PCP Family Medicine; Referring Provider Family Medicine; Visit Provider Surgery
PROC: 0DJD8ZZ Inspection of Lower Intestinal Tract, Via Natural or Artificial Opening Endoscopic (ICD-10-PCS; CPT 45378; principal; 2020-07-21 06:25)
DX: Z12.11 Encounter for screening for malignant neoplasm of colon (principal); K64.1 Second degree hemorrhoids; Q43.8 Other specified congenital malformations of intestine; I12.9 Hypertensive chronic kidney disease with stage 1 through stage 4 chronic kidney disease, or unspecified chronic kidney disease; N18.30 Chronic kidney disease, stage 3 unspecified; Z87.891 Personal history of nicotine dependence; Z79.899 Other long term (current) drug therapy; Z68.21 Body mass index [BMI] 21.0-21.9, adult
CPT/HCPCS: 45378; 81025; J7120; J2405

== ENCOUNTER 2021-05-10 09:45 | Outpatient (CLI) | payer SELFPAY ==
[2021-05-10 10:25] LABS: Hematocrit 34.6 % (37-47); Hemoglobin 10.5 g/dL (12.0-15.0); Mean Corp Hgb Conc 30.3 g/dL (32-36); Mean Corpuscular Hgb 24.5 pg (27.0-32.0); Mean Corpuscular Volume 80.8 fL (81-99); Mean Platelet Vol. 9.4 fl (6.2-12.0); Platelet Count 317 K/mm3 (150-450); RBC Distribution Width CV 15.2 % (11.6-14.6); RBC Distribution Width SD 44.5 fl (35.1-43.9); Red Blood Count 4.28 M/mm3 (4.2-5.4); White Blood Count 4.2 K/mm3 (4.4-11.0)
[2021-05-10 10:52] LABS: PTHIN 37.5 pg/mL (18.4-80.1)
[2021-05-10 10:55] LABS: Vitamin D,25 Hydroxy 34.7 ng/mL
[2021-05-10 11:05] LABS: Albumin, Serum 3.7 g/dL (3.2-5.0); BUN 23 mg/dL (7-18); BUN/Creat Ratio 13.9 RATIO (10-20); Calcium,Total 9.5 mg/dL (8.5-10.1); Chloride 104 mmol/L (98-107); Creatinine, Serum 1.65 mg/dL (0.55-1.02); EST Glomerular Filtration Rate 35 mL/min (>60); Est Glom Filt Rate - Afr Amer 42 mL/min (>60); Glucose 93 mg/dL (74-106); Phosphorus 3.1 mg/dL (2.5-4.9); Potassium 3.7 mmol/L (3.5-5.1); Sodium Level 137 mmol/L (136-145)
[2021-05-10 11:20] LABS: Protein, Urine (Random) 67.8 mg/dL (<11.9); Protein:Creat Ratio 1088 mg/g CRE (0-200)
== END 2021-05-10 23:59 | disposition home or self-care (01) ==
PROVIDERS: PCP Family Medicine; Referring Provider Internal Medicine Nephrology; Visit Provider Internal Medicine Nephrology
DX: I12.9 Hypertensive chronic kidney disease with stage 1 through stage 4 chronic kidney disease, or unspecified chronic kidney disease (principal); N18.31 Chronic kidney disease, stage 3a; D63.1 Anemia in chronic kidney disease
CPT/HCPCS: 36415; 80069; 82306; 82570; 83970; 84156; 85027

== ENCOUNTER → 2022-06-06 | Outpatient (CLI) | payer SELFPAY ==
[2022-06-06 12:18] LABS: Hematocrit 42.8 % (37-47); Hemoglobin 14.2 g/dL (12.0-15.0); Mean Corp Hgb Conc 33.2 g/dL (32-36); Mean Corpuscular Hgb 33.6 pg (27.0-32.0); Mean Corpuscular Volume 101.2 fL (81-99); Mean Platelet Vol. 9.2 fl (6.2-12.0); Platelet Count 239 K/mm3 (150-450); RBC Distribution Width CV 11.5 % (11.6-14.6); RBC Distribution Width SD 42.7 fl (35.1-43.9); Red Blood Count 4.23 M/mm3 (4.2-5.4); White Blood Count 5.7 K/mm3 (4.4-11.0)
[2022-06-06 12:34] LABS: Protein, Urine (Random) 58.9 mg/dL (<11.9); Protein:Creat Ratio 1925 mg/g CRE (0-200)
[2022-06-06 12:54] LABS: Vitamin D,25 Hydroxy 53.2 ng/mL
[2022-06-06 13:10] LABS: Albumin, Serum 3.6 g/dL (3.2-5.0); BUN 18 mg/dL (7-18); BUN/Creat Ratio 12.3 RATIO (10-20); Calcium,Total 9.7 mg/dL (8.5-10.1); Chloride 103 mmol/L (98-107); Creatinine, Serum 1.46 mg/dL (0.55-1.02); EST Glomerular Filtration Rate 40 mL/min (>60); Est Glom Filt Rate - Afr Amer 48 mL/min (>60); Glucose 96 mg/dL (74-106); Phosphorus 1.9 mg/dL (2.5-4.9); Potassium 3.5 mmol/L (3.5-5.1); Sodium Level 138 mmol/L (136-145)
[2022-06-06 13:54] LABS: PTHIN 44.2 pg/mL (18.4-80.1)
== END | disposition home or self-care (01) ==
PROVIDERS: PCP Family Medicine; Referring Provider Internal Medicine Nephrology; Visit Provider Internal Medicine Nephrology
DX: N18.31 Chronic kidney disease, stage 3a (principal); N25.81 Secondary hyperparathyroidism of renal origin; D63.1 Anemia in chronic kidney disease
CPT/HCPCS: 36415; 80069; 82306; 82570; 83970; 84156; 85027

== ENCOUNTER → 2023-06-12 | Outpatient (CLI) | payer OTHER, SELFPAY ==
[2023-06-12 10:37] LABS: Hematocrit 47.8 % (37-47); Hemoglobin 15.8 g/dL (12.0-15.0); Mean Corp Hgb Conc 33.1 g/dL (32-36); Mean Corpuscular Hgb 32.9 pg (27.0-32.0); Mean Corpuscular Volume 99.6 fL (81-99); Mean Platelet Vol. 9.1 fl (6.2-12.0); Platelet Count 230 K/mm3 (150-450); RBC Distribution Width CV 12.3 % (11.6-14.6); White Blood Count 4.1 K/mm3 (4.4-11.0)
[2023-06-12 10:50] LABS: Protein, Urine (Random) 46.3 mg/dL (<11.9); Protein:Creat Ratio 1728 mg/g CRE (0-200)
[2023-06-12 11:04] LABS: PTHIN 57.2 pg/mL (18.4-80.1)
[2023-06-12 11:08] LABS: Vitamin D,25 Hydroxy 34.3 ng/mL
[2023-06-12 11:29] LABS: Albumin, Serum 3.5 g/dL (3.2-5.0); BUN 26 mg/dL (7-18); BUN/Creat Ratio 15.8 RATIO (10-20); Calcium,Total 9.3 mg/dL (8.5-10.1); Chloride 101 mmol/L (98-107); Creatinine, Serum 1.65 mg/dL (0.55-1.02); EST Glomerular Filtration Rate 35 mL/min (>60); Est Glom Filt Rate - Afr Amer 42 mL/min (>60); Glucose 95 mg/dL (74-106); Phosphorus 2.7 mg/dL (2.5-4.9); Potassium 3.7 mmol/L (3.5-5.1); Sodium Level 135 mmol/L (136-145)
== END | disposition home or self-care (01) ==
LOC: LAB 10:00
PROVIDERS: PCP Family Medicine; Referring Provider Internal Medicine Nephrology; Visit Provider Internal Medicine Nephrology
DX: N18.31 Chronic kidney disease, stage 3a (principal); N25.81 Secondary hyperparathyroidism of renal origin; D63.1 Anemia in chronic kidney disease
CPT/HCPCS: 36415; 80069; 82306; 82570; 83970; 84156; 85027

== ENCOUNTER → 2024-06-10 | Outpatient (CLI) | payer OTHER, SELFPAY ==
[2024-06-10 11:13] LABS: Protein, Urine (Random) 53.8 mg/dL (0.0-12.0); Protein:Creat Ratio 1431 mg/g CRE (0-200)
[2024-06-10 11:16] LABS: AST(SGOT) 25 U/L (<=31); Alanine Aminotransfer ALT/SGPT 21 U/L (<=34); Albumin, Serum 4.6 g/dL (3.5-5.0); Alkaline Phosphatase 49 U/L (35-104); Bilirubin, Direct 0.19 mg/dL (0.00-0.30); Globulin 3.3 g/dL (2.2-4.2); Protein, Total 7.8 g/dL (5.9-8.4); Total Bilirubin 0.48 mg/dL (0.00-1.30)
[2024-06-10 11:19] LABS: Hemoglobin A1c 5.1 % (<=5.6)
[2024-06-11 11:08] LABS: Anti-dsDNA Ab 3 IU/mL (0-9)
[2024-06-11 14:08] LABS: PROEL- A/G Ratio 1.3 (0.7-1.7); PROEL- Alpha-1 Globulin 0.2 g/dL (0.0-0.4); PROEL- Alpha-2 Globulin 0.8 g/dL (0.4-1.0); PROEL- Gamma Globulin 1.2 g/dL (0.4-1.8); PROEL- Globulin, Total 3.2 g/dL (2.2-3.9); PROEL- TOTAL PROTEIN 7.2 g/dL (6.0-8.5); PROEL-M-Spike Not Observed g/dL (Not Observed)
[2024-06-12 19:27] LABS: Anion Gap 13 (5-15); BUN 33 mg/dL (4-19); BUN/Creat Ratio 19.5 RATIO (10-20); Calcium,Total 11.8 mg/dL (7.6-11.0); Carbon Dioxide 26.2 mmol/L (21.0-32.0); Chloride 102 mmol/L (98-108); EST Glomerular Filtration Rate 35 (>60); Glucose 93 mg/dL (70-99); Phosphorus 2.9 mg/dL (2.7-4.5); Potassium 4.3 mmol/L (3.3-5.1); Sodium Level 142 mmol/L (133-145)
== END | disposition home or self-care (01) ==
LOC: LAB 09:52
PROVIDERS: Referring Provider Internal Medicine Nephrology; Visit Provider Internal Medicine Nephrology
DX: N18.31 Chronic kidney disease, stage 3a (principal)
CPT/HCPCS: 36415; 80048; 80076; 82570; 83036; 84100; 84156; 84165; 86225